=== PATIENT | female | born 1955 | race Caucasian/White ===

== ENCOUNTER → 2016-11-17 | Outpatient (CLI) | payer OTHER | LOC: BMCIMAGING 11:13 | PROVIDERS: ATTEND Anesthesiology Pain Medicine | DX: M50.322 Other cervical disc degeneration at C5-C6 level (principal); M50.323 Other cervical disc degeneration at C6-C7 level; M99.71 Connective tissue and disc stenosis of intervertebral foramina of cervical region ==

== ENCOUNTER → 2016-12-01 | Outpatient (CLI) | payer OTHER | LOC: BMCIMAGING 12:11 | PROVIDERS: ATTEND Internal Medicine | DX: Z12.31 Encounter for screening mammogram for malignant neoplasm of breast (principal); M25.572 Pain in left ankle and joints of left foot; M25.571 Pain in right ankle and joints of right foot | CPT/HCPCS: G0202 ==

== ENCOUNTER → 2016-12-10 | Outpatient (CLI) | payer OTHER | LOC: BMCIMAGING 10:41 | PROVIDERS: ATTEND Internal Medicine | DX: Z12.39 Encounter for other screening for malignant neoplasm of breast (principal); N63.21 Unspecified lump in the left breast, upper outer quadrant | CPT/HCPCS: 76641; G0206 ==

== ENCOUNTER → 2016-12-12 | Outpatient (CLI) | payer OTHER | LOC: FIMAGING 08:46 | PROVIDERS: ATTEND Podiatrist Foot & Ankle Surgery | DX: S93.432D Sprain of tibiofibular ligament of left ankle, subsequent encounter (principal); M76.71 Peroneal tendinitis, right leg; R93.6 Abnormal findings on diagnostic imaging of limbs; M76.72 Peroneal tendinitis, left leg; M76.822 Posterior tibial tendinitis, left leg; M25.572 Pain in left ankle and joints of left foot; M25.571 Pain in right ankle and joints of right foot ==

== ENCOUNTER → 2016-12-28 | Outpatient (CLI) | payer OTHER ==
[~2016-12-28] MED LIST: BUPIVACAINE 0.5% 10 ML SDV ONE; LIDOCAINE 1% 300 MG/30 ML SDV ONE; THROMBIN (BOVINE) 5,000 UNIT VIAL TP ONE
== END ==
LOC: FIMAGING 06:58
PROVIDERS: ATTEND Internal Medicine
PROC: 0HBU3ZX Excision of Left Breast, Percutaneous Approach, Diagnostic (ICD-10-PCS; principal; 2016-12-28)
DX: N64.1 Fat necrosis of breast (principal)
CPT/HCPCS: 19083; 88305; G0206

== ENCOUNTER 2017-03-25 17:27 | Inpatient (IN) | payer OTHER ==
--- NOTE | 2017-03-25 17:31 | EDPHY ---
H & P Time Seen by Provider: 03/25/17 17:31 HPI/ROS: CHIEF COMPLAINT: Chest pain HISTORY OF PRESENT ILLNESS: Patient arrives by EMS. About 345 patient felt nausea after eating and had 2 episodes of vomiting followed by severe anterior chest pain which feels like something is "being ripped "and radiates now to the back between her scapula. Symptoms severe and worse with deep breath or sometimes with movement. Not associated with cough or weakness or numbness in extremities. She did have diarrhea with her vomiting. She received aspirin by the paramedics. REVIEW OF SYSTEMS: Eye: no change in vision ENT: no sore throat Cardiac: No palpitations or syncope Pulmonary: no cough or SOB Abdomen: No abdominal pain now Musculoskeletal: HPI no leg swelling Skin: no rash Neuro: no headache Constitutional: no fever : no urinary symptoms A comprehensive 10 point review of systems is otherwise negative aside from elements mentioned in the history of present illness. PAST MEDICAL HISTORY: Dr. Wheeler history and physical in June of 2008 personally reviewed includes diabetes, bipolar disorder, hypertension, hyperlipidemia, chronic pain. Appendectomy. Social history: Nonsmoker. Family history: Brother had quadruple bypass surgery General Appearance: Alert and conversant, cooperative. Eyes: No scleral icterus. ENT, Mouth: Normal mucous membranes. Respiratory: Normal respiratory effort, breath sounds equal, lungs are clear to auscultation. Breath sounds present on both sides. Cardiovascular: Regular rate and rhythm. Gastrointestinal: Abdomen is soft and non tender. Negative for Barnes sign or epigastric tenderness. Neurological: Alert, face symmetric, normal motor and sensory in extremities. Skin: Warm and dry, no rashes. Musculoskeletal: No peripheral edema. No calf tenderness. Psychiatric: Not agitated. Emergency Department course/MDM: Patient declined pain medication on arrival as she is under the care of Dr. Rosy Wallace for chronic pain. Plan for labs including LFT and D-dimer. Troponin and CT angiography to evaluate for dissection, will do CT angiography of the pulmonary arteries if D- dimer is positive. 1839: troponin 0.43, repeat EKG, NTG sl given, cardiology consult. Results discussed with the patient at 7:15 p.m.. She would like to take her usual pain medication and is given Percocet 2 p.o. Admission to hospitalist service for further evaluation. Constitutional: Initial Vital Signs Temperature (C) 37.0 C 03/25/17 17:38 Heart Rate 90 03/25/17 17:38 Respiratory Rate 18 03/25/17 17:38 Blood Pressure 154/80 H 03/25/17 17:38 O2 Sat (%) 97 03/25/17 17:38 O2 Delivery Mode Room Air Allergies/Adverse Reactions: nabumetone [Nabumetone] Allergy (Severe, Unverified 03/25/17 19:33) metaxalone [From Skelaxin] Allergy (Unknown, Unverified 03/25/17 19:33) Sulfa (Sulfonamide Antibiotics) Allergy (Unknown, Unverified 03/25/17 19:33) Home Medications: Medication Instructions Recorded ARIPiprazole [Abilify 5 mg (*)] 2.5 mg PO DAILY 01/19/10 Albuterol [Proventil Inhaler HFA 2 puffs IH Q4 PRN 01/19/10 (*)] Diazepam [Valium 10 MG (*)] 10 mg PO DAILY PRN 01/19/10 Omeprazole [Prilosec 20 mg] 20 mg PO BIDAC 01/19/10 Triamterene/Hydrochlorothiazid 1 each PO DAILY 01/19/10 [Triamterene-Hctz 37.5-25 mg Tb] traZODone [traZODone 150MG (*)] 150 mg PO HS 01/19/10 Albuterol [Proventil Inhaler HFA 1 puffs IH BID 03/25/17 (*)] Aspirin EC [Aspirin EC 81 mg (*)] 81 mg PO DAILY 03/25/17 Baclofen [Baclofen 10 mg (*)] 10 mg PO TID 03/25/17 Cholecalciferol Vit D3 [Vitamin D3 2,500 units PO DAILY18 03/25/17 (*)] Cyanocobalamin [Vitamin B12 (*)] 1,000 mcg PO DAILY18 03/25/17 Cyclobenzaprine [Flexeril 10 MG 10 mg PO DAILY PRN 03/25/17 (*)] Docusate Calcium [Stool Softener] 240 mg PO DAILY18 03/25/17 Ferrous Sulfate [Ferrous Sulf 325 325 mg PO DAILY18 03/25/17 MG (*)] Fluticasone Nasal [Flonase Nasal 2 sprays EACHNARE DAILY 03/25/17 [place] (RX)] Fluticasone Nasal [Flonase Nasal 2 sprays EACHNARE HS PRN 03/25/17 [place] (RX)] Gabapentin [Neurontin 300 MG (*)] 1,200 mg PO HS 03/25/17 [place]/Supplements -Info Only 1 ea PO DAILY 03/25/17 Ibuprofen/Diphenhydramine Cit 2 each PO DAILY@22 03/25/17 [Advil Pm Caplet] Linaclotide [Linzess] 290 mcg PO DAILY 03/25/17 Metoprolol Tartrate [Lopressor 50 50 mg PO BID 03/25/17 mg (*)] Mometasone/Formoterol [Dulera 200 1 inh IH BID 03/25/17 Mcg/5 Mcg Inhaler] Ondansetron Odt [Zofran Odt 4 mg 4 mg PO DAILY PRN 03/25/17 (*)] Simvastatin 40 mg PO DAILY AT 6PM 03/25/17 metFORMIN SR [Glucophage XR 500 mg 1,000 mg PO DAILY AT 6PM 03/25/17 (*)] Medical Decision Making - Diagnostics EKG Interpretation: 12-lead EKG interpreted by me; official reading is in trace master. My interpretation is sinus rhythm rate 89 with late anterior RS transition. 2nd EKG at 6:43 p.m.: 12-lead EKG interpreted by me; official reading is in trace master. My interpretation is sinus rhythm, late anterior RS transition, otherwise negative. No ST elevation. Imaging Results: Imaging Impressions Chest/Thorax CTA 03/25/17 18:19 Impression: 1. No pulmonary embolism to the segmental level. 2. Scan timing appears optimized to evaluate the pulmonary arterial system, however, the thoracic aorta does appear grossly normal. 3. Scattered 3 mm groundglass nodules, most apparent in the lingula. Per Fleischner Society 2017 guidelines, recommend follow-up CT in 3-[address] Gordon discussed these findings by telephone with CRISTIANO BAKER on 03/25/2017 at 19:30 hours. [place]ain[place] 1931, CT angio chest shows no dissection, no PE. No reason for chest pain; no [place]. Differential Diagnosis: Differential diagnosis considered for chest pain including but not limited to myocardial ischemia, aortic dissection, pericarditis, pulmonary embolus, chest wall pain, pleural inflammation and pulmonary infectious causes. Consult/Admit Bed Type: Discussed with [facility]lin cardiology 1842, Jonathan 1914 - Data Points Laboratory Results: Laboratory Results 03/25/17 17:36 03/25/17 17:36 03/25/17 03/25/17 03/25/17 17:37 17:36 17:36 WBC RBC Hgb POC Hgb 14.6 gm/dL gm/dL (12.6-16.3) Hct POC Hct 43 % % (38-47) MCV MCH MCHC RDW Plt Count MPV Neut % (Auto) Lymph % (Auto) [place] % (Auto) Eos % (Auto) Baso % (Auto) Nucleat RBC Rel Count Absolute Neuts (auto) Absolute Lymphs (auto) Absolute Monos (auto) Absolute Eos (auto) Absolute Basos (auto) Absolute Nucleated RBC Immature Gran % Immature Gran # D-Dimer 0.49 ug/mLFEU ug/mLFEU (0.00-0.50) POC Sodium 139 mEq/L mEq/L (135-145) Sodium 139 mEq/L mEq/L (135-145) POC Potassium 3.7 mEq/L mEq/L (3.3-5.0) Potassium 4.1 mEq/L mEq/L (3.5-5.2) POC Chloride 100 mEq/L mEq/L (97-110) Chloride 102 mEq/L mEq/L (97-110) Carbon Dioxide 23 mEq/l mEq/l (22-31) Anion Gap 14 mEq/L mEq/L (8-16) POC BUN 26 mg/dL H mg/dL (7-23) BUN 25 mg/dL H mg/dL (7-23) Creatinine 0.8 mg/dL mg/dL (0.6-1.0) POC Creatinine 0.8 mg/dL mg/dL (0.6-1.0) Estimated GFR > 60 Glucose 131 mg/dL H mg/dL (70-100) POC Glucose 154 mg/dL H mg/dL (70-100) Calcium 9.9 mg/dL mg/dL (8.5-10.4) Total Bilirubin 0.3 mg/dL mg/dL (0.1-1.4) Conjugated Bilirubin 0.3 mg/dL mg/dL (0.0-0.5) Unconjugated Bilirubin 0.0 mg/dL mg/dL (0.0-1.1) AST 23 IU/L IU/L (14-46) ALT 30 IU/L IU/L (9-52) Alkaline Phosphatase 119 IU/L IU/L (38-126) Troponin I 0.434 ng/mL H ng/mL (0.000-0.034) Total Protein 6.8 g/dL g/dL (6.3-8.2) Albumin 4.2 g/dL g/dL (3.5-5.0) Lipase 156 IU/L IU/L (23-300) 03/25/17 17:36 WBC 11.20 10^3/uL H 10^3/uL (3.80-9.50) RBC 5.39 10^6/uL H 10^6/uL (4.18-5.33) Hgb 14.1 g/dL g/dL (12.6-16.3) POC Hgb Hct 43.0 % % (38.0-47.0) POC Hct MCV 79.8 fL L fL (81.5-99.8) MCH 26.2 pg L pg (27.9-34.1) MCHC 32.8 g/dL g/dL (32.4-36.7) RDW 17.0 % H % (11.5-15.2) Plt Count 321 10^3/uL 10^3/uL (150-400) MPV 9.7 fL fL (8.7-11.7) Neut % (Auto) 78.7 % H % (39.3-74.2) Lymph % (Auto) 12.6 % L % (15.0-45.0) [place] % (Auto) 6.2 % % (4.5-13.0) Eos % (Auto) 1.2 % % (0.6-7.6) Baso % (Auto) 0.6 % % (0.3-1.7) Nucleat RBC Rel Count 0.0 % % (0.0-0.2) Absolute Neuts (auto) 8.82 10^3/uL H 10^3/uL (1.70-6.50) Absolute Lymphs (auto) 1.41 10^3/uL 10^3/uL (1.00-3.00) Absolute Monos (auto) 0.69 10^3/uL 10^3/uL (0.30-0.80) Absolute Eos (auto) 0.13 10^3/uL 10^3/uL (0.03-0.40) Absolute Basos (auto) 0.07 10^3/uL 10^3/uL (0.02-0.10) Absolute Nucleated RBC 0.00 10^3/uL 10^3/uL (0-0.01) Immature Gran % 0.7 % % (0.0-1.1) Immature Gran # 0.08 10^3/uL 10^3/uL (0.00-0.10) D-Dimer POC Sodium Sodium POC Potassium Potassium POC Chloride Chloride Carbon Dioxide Anion Gap POC BUN BUN Creatinine POC Creatinine Estimated GFR Glucose POC Glucose Calcium Total Bilirubin Conjugated Bilirubin Unconjugated Bilirubin AST ALT Alkaline Phosphatase Troponin I Total Protein Albumin Lipase Medications Given: Aspirin (Aspirin) 81 mg PO DAILY ABDON Stop: 09/21/17 19:49 Last Admin: 03/25/17 19:59 Dose: Not Given Diazepam (Valium) 10 mg PO DAILY PRN PRN Reason: neck/shoulder pain Stop: 09/21/17 21:19 Last Admin: 03/25/17 21:34 Dose: 10 mg Discontinued Medications Oxycodone/Acetaminophen (Percocet 5/325) 2 tab PO EDNOW ONE Stop: 03/25/17 19:28 Last Admin: 03/25/17 19:33 Dose: 2 tab Point of Care Test Results: 03/25/17 17:37 POC Sodium 139 POC Potassium 3.7 POC Chloride 100 POC BUN 26 H POC Creatinine 0.8 POC Glucose 154 H Departure - Departure Disposition: [facility] Inpatient Acute Clinical Impression: Troponin level elevated Chest pain Qualifiers: Chest pain type: unspecified Qualified Code(s): R07.9 - Chest pain, unspecified Condition: Fair
--- NOTE | 2017-03-25 17:38 | CPEKG ---
Heart Rate: 89 RR Interval: 674 P-R Interval: 148 QRSD Interval: 68 QT Interval: 360 QTC Interval: 439 P Baker: 54 QRS Baker: 35 T Wave Baker: 27 EKG Severity - ABNORMAL ECG - EKG Impression: SINUS RHYTHM EKG Impression: CONSIDER ANTEROSEPTAL INFARCT Electronically Signed By: Yovany Meyers 25-Mar-2017 17:45:55
[2017-03-25 18:01] LABS: PLATELET COUNT 321 10^3/uL (150-400)
[2017-03-25] MEDS ORDERED: IOPAMIDOL (ISOVUE 370) 100 ML BTL IV ONE (18:27)
[2017-03-25] MEDS ORDERED: NITROGLYCERIN 0.4 MG BTL SL PRN (18:40)
--- NOTE | 2017-03-25 18:44 | CPEKG ---
Heart Rate: 91 RR Interval: 659 P-R Interval: 180 QRSD Interval: 70 QT Interval: 372 QTC Interval: 458 P Abercrombie: 78 QRS Abercrombie: 34 T Wave Abercrombie: 38 EKG Severity - ABNORMAL ECG - EKG Impression: SINUS RHYTHM EKG Impression: CONSIDER ANTEROSEPTAL INFARCT Electronically Signed By: Yovany Meyers 25-Mar-2017 18:46:31
[2017-03-25] MEDS ORDERED: OXYCODONE/APAP 5/325 TAB PO ONE (19:27)
[2017-03-25] MEDS ORDERED: ONDANSETRON 4 MG/2 ML VIAL IVP PRN (19:43)
[2017-03-25] MEDS ORDERED: ONDANSETRON DISINTEGRATING 4 MG TAB PO PRN ×2 (19:43→21:20)
[2017-03-25] MEDS ORDERED: ACETAMINOPHEN 325 MG TAB PO PRN (19:43)
[2017-03-25] MEDS ORDERED: ASPIRIN 81 MG CHEWABLE TAB PO SCH (19:50)
--- NOTE | 2017-03-25 20:46 | GHP ---
[f rep st] HISTORY AND PHYSICAL DATE OF ADMISSION: 03/25/2017 HISTORY OF PRESENT ILLNESS: The patient is a pleasant, 62-year-old female with history of high blood pressure, chronic pain, irritable bowel syndrome, hyperlipidemia, and diabetes who presents with alexis den-onset chest pain. This morning she woke up, she did not feel quite right. She says everyone has been sick recently and granddaughter just had chicken pox. The patient has been vaccinated. Has had the zoster vaccine. Has had chickenpox in the past. Today, she was straining at stool. She felt some chest pain and abd ominal pain that was pleuritic. She got a bit diaphoretic. She had a large bowel movement followed by some diarrhea and she has also had some vomiting. Since then, she has had some chest pain. She h as had a little bit of perspiration. It does not go anywhere like her arm or jaw. She does not have history of exertional chest pain. She has no recent long car trips or plane trips. No family or personal history of VTE. She also describes her anterior chest pain is like something is being ripped. Radiates to her scapul a. It is worse with movement. It actually was improved by sitting up and leaning on her left side. REVIEW OF SYSTEMS: Complete 10-point review of systems conducted and negative except as noted in the HPI. PAST MEDICAL HISTORY: Diabetes, bipolar, hypertension, hyperlipidemia, chronic pain. Appendectomy. SOCIAL HISTORY: She is a nonsmoker. Lives in [place]. Originally from [place], [place]. FAMILY HISTORY: Notable for her brother and quadruple bypass. ALLERGIES: Nabumetone, metaxalone, sulfa. MEDICATIONS: Pending at this time. PHYSICAL EXAMINATION: VITAL SIGNS: Temperature 37, blood pressure 154/80, pulse 90, breathing 18 ti mes a minute, 97% on room air. GENERAL: No acute distress. Not breathless. Sclerae are anicteric. Oropharynx is clear. Mucous membranes are moist. NECK: Supple without lymphadenopathy or JVD. MELANIE NGS: Clear to auscultation bilaterally. HEART: S1, S2. Borderline tachycardic. There is no murmu r. There is no rub. ABDOMEN: Soft, nontender, nondistended. EXTREMITIES: Lower extremities witho ut edema. Calves are nontender. SKIN: Without rash. NEUROLOGIC: Nonfocal. LABS: White count is 11.2, left shift. Hematocrit 43, MCV is low at 79.8. D-dimer 0.49, sodium is 139, potassium 4.1, chloride 102, bicarb 22, BUN 25, creatinine 0.8, glucose 131, troponin is 0.434. LFTs are normal. EKG: Interpreted by me. Initial EKG has somewhat of a wavy baseline. The second shows sinus at 91 with normal axis and intervals. There is what appears to be a pseudo 0.[address] elevation in lead I. Not seen in L. Not seen in the lateral leads. She does appear to have RI depression of 1 mm in caesar d II as well as some RI elevation in lead AVR. CTA of the chest: Interpreted by me. The CTA of the chest shows no pulmonary embolism. No pneumoni a. There is some motion artifact, but there is no large pulmonary embolism. There are 3 mm ground-g lass nodules, most apparent in the lingula. This recommends followup in 3-6 months. There is no aor tic aneurysm or intimal flap to suggest dissection. I discussed the case Dr. Yovany Meyers. ASSESSMENT/PLAN: A 62-year-old female who presents with chest pain and positive troponin. 1. Chest pain with positive troponin but without ST-elevation and really without any ischemic electr ocardiogram changes. Her electrocardiogram does, perhaps, suggest pericarditis and certainly a mild pericarditis would be a reasonable diagnostic consideration. She has been probably ruled out for pul monary embolism between the negative D-dimer and a test that is suboptimal but negative for pulmonary embolism. Certainly a pulmonary embolism causing the symptomatology and positive troponin would exp ect it to be large. a. I will cycle her troponins. I will check an echocardiogram. If this is a pericarditis, I would expect her troponin to be somewhat flat. Cardiology could be consulted if this does not fall in the trajectory as expected. b. Notably, the patient had a carotid ultrasound in 2016 that showed really no vascular disease at a ll, making significant coronary disease less likely but not impossible. 2. Chronic pain. Will continue her medications. 3. Microcytosis. She takes iron. 4. Nausea, vomiting, and diarrhea. This sounds like either the resolution of symptomatic constipati on and/or a viral gastroenteritis. We will follow. 5. Diabetes. Will hold her metformin. She has historically good control. Her last hemoglobin A1c was below 7. 6. Prophylaxis. Pharmacologic prophylaxis indicated. 7. Disposition. Inpatient status. /[id number]/MODL
[2017-03-25] MEDS ORDERED: DIAZEPAM 10 MG TAB PO PRN (21:20)
[2017-03-25] MEDS ORDERED: CYCLOBENZAPRINE 10 MG TAB PO PRN (21:20)
[2017-03-25] MEDS ORDERED: ALBUTEROL 60 PUFFS/8 GM MDI IH PRN (21:20)
[2017-03-25] MEDS ORDERED: DIAZEPAM 5 MG TAB ONE (21:33)
[2017-03-25] MEDS ORDERED: DIPHENHYDRAMINE CIT PO SCH (22:00)
[2017-03-25] MEDS ORDERED: IBUPROFEN PO SCH (22:00)
[2017-03-25] MEDS ORDERED: ASPIRIN 325 MG TAB PO ONE (22:55)
--- NOTE | 2017-03-25 23:07 | CPEKG ---
Heart Rate: 95 RR Interval: 632 P-R Interval: 172 QRSD Interval: 62 QT Interval: 360 QTC Interval: 453 P Gilmore: 78 QRS Gilmore: 54 T Wave Gilmore: 55 EKG Severity - ABNORMAL ECG - EKG Impression: SINUS RHYTHM EKG Impression: CONSIDER ANTEROSEPTAL INFARCT Electronically Signed By: Yovany Meyers 25-Mar-2017 23:45:12
[2017-03-25] MEDS ORDERED: FLUTICASONE NASAL 120 SPRAYS/16 GM MDI EACHNARE PRN (23:30)
[2017-03-25] MEDS ORDERED: DIAZEPAM 5 MG TAB PO PRN (23:30)
[2017-03-25] MEDS: GABAPENTIN 300 MG CAP PO SCH (23:33)
[2017-03-25] MEDS: METOPROLOL TARTRATE 50 MG TAB PO SCH (23:33)
[2017-03-25] MEDS: BACLOFEN 10 MG TAB PO SCH (23:33)
[2017-03-25] MEDS: ENOXAPARIN 80 MG/0.8 ML SYR SC SCH (23:48)
[2017-03-26] MEDS: ENOXAPARIN 80 MG/0.8 ML SYR SC SCH ×2 (00:14→08:53)
[2017-03-26 04:26] LABS: PLATELET COUNT 310 10^3/uL (150-400)
[2017-03-26] MEDS: TRIAMTERENE/HCTZ 37.5/25 1 EACH TAB PO SCH (08:54)
[2017-03-26] MEDS: METOPROLOL TARTRATE 50 MG TAB PO SCH ×2 (08:54→20:50)
[2017-03-26] MEDS: ASPIRIN EC 81 MG TAB PO SCH (08:54)
[2017-03-26] MEDS: PANTOPRAZOLE SODIUM 40 MG TAB PO SCH (08:54)
[2017-03-26] MEDS: ARIPiprazole 5 MG TAB PO SCH (08:54)
[2017-03-26] MEDS: BACLOFEN 10 MG TAB PO SCH ×3 (08:54→20:50)
[2017-03-26] MEDS: NON-FORMULARY NEW DRUG (Linaclotide [Linzess] 290 MCG) PO SCH (08:56)
[2017-03-26] MEDS ORDERED: Herbals/Supplements -Info Only PO SCH (09:00)
[2017-03-26] MEDS ORDERED: ENOXAPARIN 40 MG/0.4 ML SYR SC SCH (09:00)
[2017-03-26] MEDS ORDERED: FLUTICASONE NASAL 120 SPRAYS/16 GM MDI EACHNARE SCH (09:00)
[2017-03-26] MEDS: ALBUTEROL 60 PUFFS/8 GM MDI IH SCH ×2 (09:34→21:06)
[2017-03-26] MEDS: FORMOTEROL IH SCH ×2 (09:35→21:06)
[2017-03-26] MEDS: MOMETASONE IH SCH ×2 (09:35→21:06)
--- NOTE | 2017-03-26 11:04 | ECHO ---
[email or web address] [address] [address] Main: [phone] Fax: Transthoracic Echocardiogram Name: ROCHELLE SIMONS MR#: [id number] Study Date: 03/26/2017 Study Time: 08:27 AM Date of : 1955 Age: 62 year(s) Height: 160 cm (63 in.) Weight: 71.67 kg (158 lb.) BSA: 1.75 m2 Gender: Female Examination: Echo Indication: chest pain and elevated troponin Image Quality: Technically Difficult Contrast: Requested by: Deonte Castillo BP: 108 mmHg/61 mmHg Heart Rate: 82 bpm Rhythm: Normal sinus rhythm Indication: chest pain and elevated troponin Procedure Staff Auto Body Estimator: Lenora Rubio [facility] Reading Physician: Cosme Adams Requesting Provider: Conclusions: Normal size left ventricle. Borderline concentric LV hypertrophy. Mildly reduced systolic LV function. EF is 46 %. Mid to distal inferoseptal hypokinesis. Grade 1 diastolic dysfunction (abnormal relaxation). There is mild thickening of the mitral valve leaflets. Trivial to mild mitral regurgitation. Aortic sclerosis is present. There is no significant tricuspid valve regurgitation. Measurements: Chambers Valvular Assessment AV/MV Valvular Assessment TV/PV Normal Normal Normal Name Value Range Name Value Range Name Value Range IVSd (2D): 1.0 cm (0.6 cm-1.1 AV Vmax: 0.95 m/s (1 m/s-1.7 PV Vmax: 1.17 m/s (0.6 m/s-0.9 cm) m/s) m/s) LVDd (2D): 3.8 cm (3.9 cm-5.3 AV maxP mmHg ( - ) PV PGmax: 5 mmHg ( - ) cm) LVOT Vmax: 0.71 m/s (0.7 m/s-1.1 LVDs (2D): 2.9 cm (2.1 cm-4 m/s) cm) MV E Vmax: 0.83 m/s ( - ) LVPWd (2D): 0.9 cm ( - ) MV A Vmax: 1.25 m/s ( - ) LVEF (BP): 46 % (>=55 %) MV E/A: 0.66 ( - ) RVDd(2D): 2.0 cm (1.9 cm-3.8 cmmm) Continued Measurements: Chambers Valvular Assessment AV/MV Patient: ROCHELLE SIMONS Study Date: 03/26/2017 Page 1 of 2 08:27 AM Name Value Name Value LADs Lon.5 cm MV DecTime: 214 m/s LA Area: 11.7 cm2 MV E' Septal: 0.06 m/s LA Volume: 30 ml MV E/E' Septal: 13.60 LA Volume Index: 17.1 ml/m2 MV E/E' Lateral: 11.90 RA Area: 10.2 cm2 Findings: Left Ventricle: Normal size left ventricle. Borderline concentric LV hypertrophy. Mildly reduced systolic LV function. EF is 46 %. Mid to distal inferoseptal hypokinesis. Grade 1 diastolic dysfunction (abnormal relaxation). Right Ventricle: Normal size right ventricle. Normal RV function. Left Atrium: The left atrium is normal in size. Right Atrium: The right atrium is normal in size. Mitral Valve: There is mild thickening of the mitral valve leaflets. Trivial to mild mitral regurgitation. No mitral stenosis is present. Aortic Valve: The aortic valve is normal in appearance and function. Aortic sclerosis is present. There is no significant aortic valve regurgitation. No aortic valve stenosis is present. Tricuspid Valve: The tricuspid valve is normal in appearance and function. There is no significant tricuspid valve regurgitation. Pulmonic Valve: The pulmonic valve is normal in appearance and function. There is no pulmonic regurgitation seen. Aorta: Ascending aorta root not well seen.. IVC: The IVC is normal sized. Pericardium: Trivial anterior pericardial effusion. There is pericardial fat. (No Signature Object) Patient: ROCHELLE SIMONS Study Date: 03/26/2017 Page 2 of 2 08:27 AM [id number]
[2017-03-26] MEDS ORDERED: NITROGLYCERIN 0.4 MG BTL SL PRN (11:12)
[2017-03-26] MEDS ORDERED: OXYCODONE/APAP 5/325 TAB PO PRN (11:13)
--- NOTE | 2017-03-26 11:54 | PDMN ---
Medical Necessity Medical necessity: est los>2mn for chest pain with positive troponin, N/V/D,r/o pericarditis, ; admit for serial troponins, potential cardiac consult; comorbid DM, HTN, HLD, bipolar, and chronic pain; per order and H&P 03/25/17
[2017-03-26] MEDS ORDERED: ASPIRIN EC 325 MG TAB PO ONE (12:22)
[2017-03-26] MEDS ORDERED: FAMOTIDINE 20 MG TAB PO ONE (12:22)
[2017-03-26] MEDS ORDERED: diphenhydrAMINE 25 MG CAP PO ONE (12:22)
--- NOTE | 2017-03-26 12:48 | PDHPUP ---
History & Physical Update H&P update statement: This history and physical update is based on an assessment of the patient which was completed after admission or registration (within 24 hours), but prior to the surgery/procedure. H&P update: H&P reviewed & patient examined, no change in patient's condition since H&P completed
--- NOTE | 2017-03-26 12:49 | PDPROPOC ---
Sedation Plan of Care Sedation Plan of Care: vital signs stable, mental status noted, patient educated of risks, benefits, alternatives, patient can tolerate sedation ASA Classification: ASA 2 Planned drugs: fentanyl, midazolam Mallampati Score: Class 2 Mallampati Reference Image: Patient passed 3-3-2 rule?: Yes
[2017-03-26] MEDS ORDERED: fentaNYL 100 MCG/2 ML INJ ONE (13:00)
[2017-03-26] MEDS ORDERED: MIDAZOLAM 2 MG/2 ML VIAL ONE (13:00)
[2017-03-26] MEDS ORDERED: LIDOCAINE 1% 300 MG/30 ML SDV ONE (13:00)
[2017-03-26] MEDS ORDERED: IOPAMIDOL (ISOVUE-370) 150 ML BTL IV ONE (13:01)
[2017-03-26] MEDS ORDERED: ATROPINE SULFATE 1 MG/10 ML SYR IVP PRN (14:21)
--- NOTE | 2017-03-26 14:29 | PDDXCAT ---
Diagnostic Cath Note - . Date: 03/26/17 Press Reader: Bryan Indication: other (Chest pain, elevated troponin, and multiple CAD risk factors. ) - Procedure Access: right groin Procedure: left heart catheterization, coronary angiography, left ventriculogram - Materials Left Heart Cath size: 6F Left Heart Cath materials: standard multipack (JL4, JR4, pigtail) - Findings-Left Heart Catheterization LM: Normal. LAD: There is a segment of disease in the mid-LAD spanning approximately 25 cm in length containing 3 to 4 areas of stenosis up to 50-60%. The remainder of the LAD and its diagonal branches are normal in appearance. LCX: Minimal irregularities. RCA: Normal. EDP: 23 mmHg LVEF: 40% Wall motion: There is a circumferential zone of akinesis comprising approximately the middle third of the left ventricle and crossing all 3 coronary artery distributions. Complications: None Estimated blood loss: <50ml Closure method: Angioseal Assessment: 1) Nonischemic cardiomyopathy with mildly to moderately reduced left ventricular systolic function secondary to the mid-ventricular variant of Takotsubo syndrome. 2) Coronary artery disease as described above. Plan: For her documented coronary atherosclerosis, she will need aggressive secondary prevention. She should continue aspirin and a statin. A lipid panel performed last year demonstrated a total cholesterol of 190 with HDL 36, LDL 86, and triglycerides 344. A repeat lipid panel, along with a directly measured LDL, has been requested to be added to her blood sample from this morning's draw. Her goal LDL should be less than 70. Would consider switching her to atorvastatin. For her Takotsubo syndrome, beta brittany therapy should be added to her outpatient regimen. She should be seen in follow up for repeat echocardiography in several weeks to assess for probable resolution of her wall motion abnormalities. She is stable for discharge. Patient Problems: Problems Problem Status Onset Chest pain Acute Troponin level elevated Acute
--- NOTE | 2017-03-26 15:20 | ASMTCASEMG ---
Living Arrangements What is your living Answers: With Spouse arrangement? Who do you live with? Type Of Residence What kind of residence do Answers: House you live in? Discharge Plan Comments Coordination Status Comments Notes: Pt is a 62 y/o female admitted for chest pain and elevated trop. Pt had a heart cath at 1PM this afternoon. Pt should not have any needs at time of d/c. Therapies have not been ordered. CM available for changes. Plan: Independent Date Signed: 03/26/2017 03:20 PM Electronically Signed By:ABBE Noel
--- NOTE | 2017-03-26 16:34 | HOSPPROG ---
Hospitalist Progress Note Assessment/Plan: This is a 62-year-old female presented with chest pain and elevated troponins status post cardiac catheterization showing #Nonischemic cardiomyopathy with mild to moderate reduced left ventricular systolic function thought to be due to takotsubo syndrome with minimal coronary artery disease # chronic pain (controlled) -continue with Percocet as needed # diabetes mellitus (controlled) Disposition: Patient will be monitored for 1 more day to ensure her cardiac function is stabilizing. Subjective: Patient was seen this morning where she continued to have dull chest pain. She denies any shortness of breath. Denies any fevers or chills. Objective: Vital Signs Temp Pulse Resp BP Pulse Ox 37.2 C 90 15 108/65 94 03/26/17 15:50 03/26/17 15:50 03/26/17 15:50 03/26/17 15:50 03/26/17 15:50 Laboratory Results 03/26/17 03:40 03/26/17 03:40 03/25/17 03/26/17 03/27/17 05:59 05:59 05:59 Intake Total 600 250 Output Total 250 700 Balance 350 -450 Laboratory Tests 03/25/17 03/25/17 03/26/17 17:36 22:04 03:40 Troponin I 0.434 H 1.930 H 1.370 H - Physical Exam Constitutional: no apparent distress, appears nourished, not in pain Cardiovascular: regular rate and rhythym, no murmur, rub, or gallop Respiratory: no respiratory distress, no rales or rhonchi, clear to auscultation Gastrointestinal: normoactive bowel sounds, soft, non-tender abdomen, no palpable masses, No guarding, No rebound Neurologic: AAOx3, sensation intact bilaterally, CN II-XII Intact, No facial droop ICD10 Worksheet Patient Problems: Problems Problem Status Onset Chest pain Acute Troponin level elevated Acute
--- NOTE | 2017-03-26 17:37 | GCON ---
[f rep st] CONSULTATION CARDIOLOGY CONSULTATION. DATE OF CONSULTATION: 03/26/2017 REFERRING PHYSICIAN: Deonte Castillo MD REASON FOR CONSULTATION: 1. Chest pain. 2. Elevated troponin. HISTORY OF PRESENT ILLNESS: The patient is a 62-year-old woman with no prior cardiac history but a s ignificant cardiovascular risk profile. She was admitted to the hospital for observation yesterday a fternoon for an episode of chest discomfort that came on while she was straining to have a bowel move ment. She described it as an extremely heavy chest pressure with some diaphoresis along with nausea and vomiting. She did not have significant dyspnea. She spoke with her by phone and he call ed 911. In the emergency room, her ECG was notable for anteroseptal Q-waves, but no acute ST-T wave abnormalities. Two sublingual doses of nitroglycerin had no impact on her discomfort. It finally cruz bsided at approximately midnight. Overnight, her troponin levels peaked at 1.93. This morning, she is pain-free and her troponin is down to 1.37. Her cardiac risk profile is significant including type 2 diabetes, hypertension, hyperlipidemia, and a family history notable for premature CAD. Her father at age 51 from myocardial infarct ion. She has a brother who is 2 years older who is currently recuperating from coronary bypass surge ry. She smoked for approximately 2 years when she was in her 20s. PAST MEDICAL HISTORY: In addition to the items already mentioned, her H and P also lists bipolar dis order and chronic pain syndrome. Surgical history consists of a prior appendectomy. Chronic anemia. FAMILY HISTORY: As outlined above. MEDICATIONS: Please refer to the electronic record for her lengthy list of home medications. Releva nt cardiac medications consist of aspirin and simvastatin. ALLERGIES: Nabumetone, metaxalone, sulfa. SOCIAL HISTORY: She is . She lives in [place]. She does not smoke or consume significant amounts of alcohol. REVIEW OF SYSTEMS: Apart from the constipation, chest pain, nausea, and vomiting mentioned in the hi story of present illness. A 10-point review was negative. PHYSICAL EXAMINATION: VITAL SIGNS: Heart rate in the 80s with sinus rhythm on the monitor. Blood p ressure 109/61, O2 saturation 92% on room air. GENERAL: This is a well-developed, well-nourished wo man in no acute distress. She is alert and oriented x3. HEAD AND NECK: No scleral icterus. Mucous membranes moist. Carotid pulses 2+ without bruits. CHEST: Lung levy clear to auscultation. CAR DIAC: Regular rate and rhythm with a normal S1 and S2. There is no murmur or gallop. ABDOMEN: Sof t, nontender, nondistended, with normal bowel sounds. EXTREMITIES: 2+ pulses and no peripheral link a. STUDIES: ECG: As mentioned, her ECG demonstrated anteroseptal Q-waves. There are no conduction sys tem disturbances and no ischemic ST-T wave abnormalities. An echocardiogram this morning demonstrated ejection fraction of 45% with inferoseptal hypokinesis. She has age-related valvular changes without hemodynamically significant valvular dysfunction. LABORATORY STUDIES: Sodium 139, potassium 3.9, BUN 22 and creatinine 0.9. CBC shows a white blood c ell count of 10.22 with hemoglobin 12.3, and hematocrit of 38.8. Platelet count is 310. IMPRESSION: This is a 62-year-old woman who has a significant cardiac risk profile. She is currentl y admitted with an acute coronary syndrome. She does not manifest any signs of congestive heart fail ure. chronic anemia and also right before social history put in this. PLAN: The high likelihood of significant coronary disease was discussed with the patient. At [facility], the plan is for cardiac catheterization with possible PCI later today. /[id number]/MODL
[2017-03-26] MEDS ORDERED: DOCUSATE SODIUM 100 MG CAP PO SCH (18:00)
[2017-03-26] MEDS ORDERED: CYANO/VITAMIN B12 1000 MCG TAB PO SCH (18:00)
[2017-03-26] MEDS ORDERED: ATORVASTATIN CALCIUM 20 MG TAB PO SCH ×2 (18:00→19:44)
[2017-03-26] MEDS ORDERED: CHOLECALCIFEROL VIT D3 1,000 UNITS TAB PO SCH (18:00)
[2017-03-26] MEDS ORDERED: FERROUS SULFATE 325 MG TAB PO SCH (18:00)
[2017-03-26] MEDS ORDERED: ATORVASTATIN CALCIUM 20 MG TAB PO ONE (20:00)
[2017-03-26] MEDS: GABAPENTIN 300 MG CAP PO SCH (20:50)
[2017-03-26] MEDS ORDERED: IBUPROFEN 200 MG TAB PO SCH ×2 (21:00→22:00)
[2017-03-26] MEDS ORDERED: diphenhydrAMINE 25 MG CAP PO SCH (22:00)
[2017-03-27] MEDS: NON-FORMULARY NEW DRUG (Linaclotide [Linzess] 290 MCG) PO SCH (07:20)
[2017-03-27] MEDS: METOPROLOL TARTRATE 50 MG TAB PO SCH (08:32)
[2017-03-27] MEDS: TRIAMTERENE/HCTZ 37.5/25 1 EACH TAB PO SCH (08:33)
[2017-03-27] MEDS: ASPIRIN EC 81 MG TAB PO SCH (08:34)
[2017-03-27] MEDS: BACLOFEN 10 MG TAB PO SCH (08:34)
[2017-03-27] MEDS: ARIPiprazole 5 MG TAB PO SCH (08:35)
[2017-03-27] MEDS: PANTOPRAZOLE SODIUM 40 MG TAB PO SCH (08:35)
[2017-03-27] MEDS: ALBUTEROL 60 PUFFS/8 GM MDI IH SCH (09:07)
[2017-03-27] MEDS: MOMETASONE IH SCH (09:08)
[2017-03-27] MEDS: FORMOTEROL IH SCH (09:08)
[2017-03-27] MEDS ORDERED: LISINOPRIL 2.5 MG TAB PO SCH (10:00)
--- NOTE | 2017-03-27 10:14 | PDCARPN ---
Cardiology Progress Note Chief Complaint: Takotsubo CM Assessment/Plan: Assessment: 62F PMH htn, DM, hlp, and fhx of CAD, admitted with acute onset of chest pressure and N/V. Noted to have elevated trop and ongoing cp. LHC reveals mod LAD disease but not flow obstructive. LVgram shows mid-ventricular variant Takotsubo CM. #. Takotsubo CM: already on BB will add Lisinopril as EF noted to be 40% will plan for early clinic follow up (appt in discharge) #. CP: improved medical management with BB #. groin precautions: reviewed #. CAD: mod LAD disease we reviewed change from Simvastatin to Atorvastatin to improve LDL Plan: - OK to d/c home - consult with Dr. Quevedo - change Simvastatin to Atorvastatin/ will need labs in 4-6 weeks/ we will arrange for that in outpatient setting - start Lisinopril 03/27/17 10:06 Subjective: Notes some mild groin tenderness. No cp. Reviewed/Discussed With: hospitalist (Dr. Giordano) Objective: Vital Signs (8 Hrs) Temp Pulse Resp BP Pulse Ox 03/27/17 09:13 80 18 95 03/27/17 08:33 106/72 03/27/17 08:32 95 106/72 03/27/17 07:51 99.0 F 85 12 106/72 96 03/27/17 04:00 97.9 F 74 16 103/68 93 Intake/Output (24 Hrs) 03/26/17 03/27/17 03/28/17 05:59 05:59 05:59 Intake Total 600 750 Output Total 250 1050 Balance 350 -300 Intake: Oral (ml) 600 500 IV Intake (ml) 250 Output: Urine (ml) 250 1050 Bedpan 200 Toilet 250 850 Other: Weight 74.4 kg Intake Quantity npo Yes Sufficient Number of Voids 1 Toilet 1 1 Result Diagrams: 03/26/17 03:40 03/26/17 03:40 Cardiac Labs: Cardiac Lab Results (72 Hrs) 03/26/17 03/25/17 03:40 22:04 Troponin I 1.370 H 1.930 H Telemetry: reviewed- SR with artifact - Physical Exam Constitutional: WDWN, no apparent distress Eyes: PERRL, anicteric sclera Cardiovascular: regular rate and rhythm, no murmurs Peripheral Pulses: 1+: dorsalis-pedis (R), dorsalis-pedis (L) Respiratory: clear to auscultate bilat, no crackles Skin: no rashes, no edema Neurologic: AAOx3 Psychiatric: cooperative, interactive ICD10 Worksheet Patient Problems: Problems Problem Status Onset Chest pain Acute Troponin level elevated Acute
[2017-03-27 12:01] VITALS: BP 141/60; PULSE 97; RESP 16; TEMP 99.5; O2SAT 97
--- NOTE | 2017-03-27 15:19 | ASDISCHSUM ---
Discharge Information Plan Status:Home with No Needs Medically Cleared to Leave: Discharge Date:03/27/2017 12:46 PM CM D/C Disposition: ADT D/C Disposition:Home, Routine, Self-Care Projected Discharge Date:03/27/2017 12:46 PM Transportation at D/C: Discharge Delay Reason: Follow-Up Date:03/27/2017 12:46 PM Discharge Slot: Final Diagnosis: Placement Information Patient Contact Information Contact Name:KARIN Relationship:Dov Address:[address] City:[place] Alternate Phone: [facility]/Zip Code:[place] [address] Email: Financial Information Financial Class: Primary Plan Desc:MEDICARE INPATIENT Primary Plan Number:[id number] Secondary Plan Desc:[employer] Secondary Plan Number:[id number] Assessment Information [facility] Initial CM Assessment Living Arrangements What is your living Answers: With Spouse arrangement? Who do you live with? Type Of Residence What kind of residence do Answers: House you live in? Discharge Plan Comments Coordination Status Comments Notes: Pt is a 62 y/o female admitted for chest pain and elevated trop. Pt had a heart cath at 1PM this afternoon. Pt should not have any needs at time of d/c. Therapies have not been ordered. CM available for changes. Plan: Independent Date Signed: 03/26/2017 03:20 PM Electronically Signed By:ABBE Noel Intervention Information
[2017-03-27] MEDS ORDERED: ATORVASTATIN CALCIUM 40 MG TAB PO SCH (18:00)
--- NOTE | 2017-03-27 22:47 | GDS ---
[f rep st] DISCHARGE SUMMARY NEW AND ACUTE DIAGNOSES: 1. Cardiomyopathy secondary to Takotsubo syndrome. 2. Chest pain with mildly elevated troponin, and status post cardiac catheterization. 3. Coronary artery disease, demonstrating moderate left anterior descending disease. The patient wi ll be medically managed. CONSULTATION: Cardiology. PROCEDURES: Echocardiogram showing an EF of 46%. Mild to distal inferior septal hypokinesis, grade 1 diastolic dysfunction, and borderline concentric LV hypertrophy with mildly reduced systolic LV fun ction. Another procedure was a cardiac catheterization showing nonischemic cardiomyopathy with mildl y to moderately reduced left ventricular systolic function secondary to a mid ventricular variant of Takotsubo syndrome. The LAD showed 3-4 areas of stenosis up to 50% to 60%. The remainder of the LAD and its diagonal branches were normal. No stents were placed. HOSPITAL COURSE: A 62-year-old female presented with chest pain, and was noted to have elevated trop onins. Cardiac catheterization showed coronary artery disease with lesions in the LAD not amenable t o stent placement. Cardiac echo showed findings consistent with Dr. Melinda umanzor. The patient thus would be managed medically by adding lisinopril, as she has an EF of 40% for her cardiomyopathy and beginning beta blockers for her Takotsubo syndrome. In addition, her simvastatin will be change d to atorvastatin to improve her LDL. DISCHARGE MEDICATIONS: New medications: Atorvastatin 40 mg daily. Lisinopril 2.5 mg daily. Continue medications: Valium 10 mg daily. Proventil inhaler 2 puffs q.4 hours p.r.n. Triamterene H CTZ 37.5/25 mg tablet 1 each day. Trazodone 150 mg h.s. Prilosec 20 mg twice daily. Abilify 2.5 mg daily. Glucophage XR 1,000 mg daily. ASA 81 mg daily. Linzess 290 mcg daily. Stool softener. Ad helen PM. Neurontin 1,200 mg h.s. Vitamin D3 2,500 units daily. Dulera 200/5 mcg inhaler 1 inhalatio n twice daily. Flonase nasal spray, 2 sprays each nares h.s. Metoprolol 50 mg twice daily. Baclofe n 10 mg t.i.d. Zofran 4 mg p.o. p.r.n. Albuterol inhaler 1 puff twice daily. Vitamin B12 1,000 mcg daily. Herbal supplementation. Ferrous sulfate 325 mg daily. Percocet 5/325 mg tablet, 1-2 p.o. q .4 hours p.r.n. pain. Discontinued medications: Simvastatin 40 mg daily. FOLLOWUP: The patient will follow up with Dr. Keshav Quevedo in 3-5 days. TIME: This discharge required 45 minutes, greater than 50% to trauma counsellor and coordinate care. All ques tions were answered of the patient. /[id number]/MODL
== END 2017-03-27 12:46 | disposition home or self-care (01) | DRG 287 ==
LOC: EDUNIT# → EDBD → F2W 22:24
PROVIDERS: ADMIT Internal Medicine; ATTEND Internal Medicine
PROC: B2151ZZ Fluoroscopy of Left Heart using Low Osmolar Contrast (ICD-10-PCS; principal; 2017-03-26)
PROC: 4A023N7 Measurement of Cardiac Sampling and Pressure, Left Heart, Percutaneous Approach (ICD-10-PCS; principal; 2017-03-26)
PROC: B2111ZZ Fluoroscopy of Multiple Coronary Arteries using Low Osmolar Contrast (ICD-10-PCS; principal; 2017-03-26)
DX: I51.81 Takotsubo syndrome (principal); I25.10 Atherosclerotic heart disease of native coronary artery without angina pectoris; G89.29 Other chronic pain; E11.9 Type 2 diabetes mellitus without complications; R91.1 Solitary pulmonary nodule; Z79.84 Long term (current) use of oral hypoglycemic drugs
CPT/HCPCS: 82947-QW; C1760; J1644; J1650; J2250; J3010; Q9967

== ENCOUNTER 2017-04-05 18:33 | Inpatient (IN) | payer OTHER ==
--- NOTE | 2017-04-05 19:03 | CPEKG ---
Heart Rate: 87 RR Interval: 690 P-R Interval: 172 QRSD Interval: 72 QT Interval: 400 QTC Interval: 482 P [place]: 69 QRS [place]: 63 T Wave [place]: 115 EKG Severity - ABNORMAL ECG - EKG Impression: SINUS RHYTHM EKG Impression: LOW VOLTAGE THROUGHOUT EKG Impression: ABNORMAL T, CONSIDER ISCHEMIA, LATERAL LEADS Electronically Signed By: Jailyn Rojo 05-Apr-2017 23:30:07
--- NOTE | 2017-04-05 19:11 | EDPHY ---
H & P Time Seen by Provider: 04/05/17 18:40 HPI/ROS: HPI Chest pain. 62-year-old female by ambulance from the office of Dr. Love. This patient has a history of coronary artery disease. She was recently admitted for chest pain and had a large workup. She tells me that her coronary angiogram showed 60% stenosis of her LAD. At 5:30 p.m.. She was at her primary care physician's office. She developed substernal chest pain with radiation up into the right clavicle. She had associated nausea and 1 episode of vomiting. EMS was called. EN route she received 324 mg of chewed aspirin. On arrival now she denies any chest pain. ROS: Constitutional: No fever, no chills. No weakness. Eyes: No discharge. No changes in vision. ENT: No sore throat. No nasal congestion or rhinorrhea. Respiratory: No cough. No shortness of breath. Cardiac: As above, no palpitations. Gastrointestinal: No abdominal pain, as above, no diarrhea. Genitourinary: No hematuria. No dysuria or increased frequency with urination. Musculoskeletal: No back pain. No neck pain. No myalgias or arthralgias. Skin: No rashes. Neurological: No headache. No focal weakness or altered sensation. Past medical history: Review of the patient's medical records significant for left heart catheterization March 26 of this year with LAD disease noted between 30 and 60%. Assessment of this procedure was nonischemic cardiomyopathy secondary to Taco [place] both syndrome. Social history: Nonsmoker. Here by herself. No alcohol. Physical Exam: General Appearance: Alert, no distress. Mildly anxious. This patient is responding to questions appropriately and in full sentences. This patient appears well-hydrated and well-nourished. Eyes: Pupils equal and round no pallor or injection. No lid edema, erythema or injection. Respiratory: There are no retractions, lungs are clear to auscultation with good air movement bilaterally. Cardiovascular: Regular rate and rhythm. No murmur. Gastrointestinal: Abdomen is soft and nontender, no masses, bowel sounds normal. No focal tenderness at McBurney's point. No Barnes sign. Neurological: Motor sensory function is grossly intact. Cranial nerves are normal. Gait is normal. Skin: Warm and dry, no rashes. Musculoskeletal: Neck is supple and nontender. Extremities are symmetrical. All joints range without pain or impingement. Psychiatric: No agitation. No depression. Database: EKG: EKG time is 7:01 p.m.; EKG shows a narrow complex normal sinus rhythm with a ventricular rate of 87. The PA, QRS, QT intervals are within normal limits. There are no ST-T wave changes indicative of ischemic or injury pattern. No evidence of right heart strain. Interpreted by me. Imaging: Chest x-ray AP portable; the cardiac mediastinal silhouette is unremarkable. No evidence of infiltrate or pneumothorax. No acute cardiopulmonary disease process noted. Interpreted by me. Procedures: Emergency department course: Vital signs reviewed and are within normal limits. She is currently chest pain- free. She received aspirin per EMS. EKG obtained and reviewed by myself. 8:20 p.m., patient re-evaluated. She remains chest pain-free. She has had some nausea but no vomiting. Results of her diagnostic workup discussed with her and her . I discussed admission overnight for observation and further evaluation. She endorses. Hospitalist paged. 8:30 p.m., spoke with Dr. Axel Giordano. Case discussed in detail with him. He accepts this patient for admission. Patient's remaining emergency department course under my care unremarkable. Patient admitted to telemetry observation in stable condition. Differential Diagnosis: The differential diagnosis on this patient includes but is not limited to acute coronary syndrome. Myocardial infarction, pulmonary embolism, aortic dissection , biliary colic unlikely. This represents a partial list of diagnoses considered. These considerations are based on history, physical exam, past history, reassessment and diagnostic testing. Smoking Status: Never smoked Constitutional: Initial Vital Signs Temperature (C) 36.8 C 04/05/17 19:05 Heart Rate 88 04/05/17 19:05 Respiratory Rate 18 04/05/17 19:05 Blood Pressure 118/74 04/05/17 19:05 O2 Sat (%) 92 04/05/17 19:05 O2 Delivery Mode Room Air Allergies/Adverse Reactions: nabumetone [Nabumetone] Allergy (Severe, Verified 03/26/17 11:53) metaxalone [From Skelaxin] Allergy (Unknown, Verified 03/26/17 11:53) Sulfa (Sulfonamide Antibiotics) Allergy (Unknown, Verified 03/26/17 11:53) Home Medications: Medication Instructions Recorded ARIPiprazole [Abilify 5 mg (*)] 2.5 mg PO DAILY 01/19/10 Albuterol [Proventil Inhaler HFA 2 puffs IH Q4 PRN 01/19/10 (*)] Diazepam [Valium 10 MG (*)] 10 mg PO DAILY PRN 01/19/10 Omeprazole [Prilosec 20 mg] 20 mg PO BIDAC 01/19/10 Triamterene/Hydrochlorothiazid 1 each PO DAILY 01/19/10 [Triamterene-Hctz 37.5-25 mg Tb] traZODone [traZODone 150MG (*)] 150 mg PO HS 01/19/10 Albuterol [Proventil Inhaler HFA 1 puffs IH BID 03/25/17 (*)] Aspirin EC [Aspirin EC 81 mg (*)] 81 mg PO DAILY 03/25/17 Baclofen [Baclofen 10 mg (*)] 10 mg PO TID 03/25/17 Cholecalciferol Vit D3 [Vitamin D3 2,500 units PO DAILY18 03/25/17 (*)] Cyanocobalamin [Vitamin B12 (*)] 1,000 mcg PO DAILY18 03/25/17 Cyclobenzaprine [Flexeril 10 MG 10 mg PO DAILY PRN 03/25/17 (*)] Docusate Calcium [Stool Softener] 240 mg PO DAILY18 03/25/17 Ferrous Sulfate [Ferrous Sulf 325 325 mg PO DAILY18 03/25/17 MG (*)] Fluticasone Nasal [Flonase Nasal 2 sprays EACHNARE HS PRN 03/25/17 [place]] Gabapentin [Neurontin 300 MG (*)] 1,200 mg PO HS 03/25/17 Herbals/Supplements -Info Only 1 ea PO DAILY 03/25/17 Ibuprofen/Diphenhydramine Cit 2 each PO DAILY@22 03/25/17 [Advil Pm Caplet] Linaclotide [Linzess] 290 mcg PO DAILY 03/25/17 Metoprolol Tartrate [Lopressor 50 50 mg PO BID 03/25/17 mg (*)] Mometasone/Formoterol [Dulera 200 1 inh IH BID 03/25/17 Mcg/5 Mcg Inhaler] Ondansetron Odt [Zofran Odt 4 mg 4 mg PO DAILY PRN 03/25/17 (*)] metFORMIN SR [Glucophage XR 500 mg 1,000 mg PO DAILY AT 6PM 03/25/17 (*)] oxyCODONE/APAP 5/325 [Percocet 1 - 2 tab PO Q4-6PRN PRN 03/26/17 5/325 (*)] Atorvastatin Calcium 40 mg PO DAILY #30 tablet 03/27/17 Atorvastatin Calcium [Lipitor 40 40 mg PO DAILY18 #30 tab 03/27/17 mg (*)] Lisinopril [Zestril 2.5 mg (*)] 2.5 mg PO DAILY #30 tab 03/27/17 Medical Decision Making - Diagnostics Imaging Results: Imaging Impressions Chest X-Ray 04/05/17 19:02 Impression: No evidence for acute cardiopulmonary abnormality. - Data Points Laboratory Results: Laboratory Results 04/05/17 16:50 04/05/17 16:50 04/05/17 04/05/17 04/05/17 16:50 16:50 16:50 WBC 8.79 10^3/uL 10^3/uL (3.80-9.50) RBC 4.96 10^6/uL 10^6/uL (4.18-5.33) Hgb 12.9 g/dL g/dL (12.6-16.3) Hct 39.8 % % (38.0-47.0) MCV 80.2 fL L fL (81.5-99.8) MCH 26.0 pg L pg (27.9-34.1) MCHC 32.4 g/dL g/dL (32.4-36.7) RDW 16.4 % H % (11.5-15.2) Plt Count 310 10^3/uL 10^3/uL (150-400) MPV 9.8 fL fL (8.7-11.7) Neut % (Auto) 77.5 % H % (39.3-74.2) Lymph % (Auto) 15.2 % % (15.0-45.0) Wood % (Auto) 5.0 % % (4.5-13.0) Eos % (Auto) 1.1 % % (0.6-7.6) Baso % (Auto) 0.9 % % (0.3-1.7) Nucleat RBC Rel Count 0.0 % % (0.0-0.2) Absolute Neuts (auto) 6.80 10^3/uL H 10^3/uL (1.70-6.50) Absolute Lymphs (auto) 1.34 10^3/uL 10^3/uL (1.00-3.00) Absolute Monos (auto) 0.44 10^3/uL 10^3/uL (0.30-0.80) Absolute Eos (auto) 0.10 10^3/uL 10^3/uL (0.03-0.40) Absolute Basos (auto) 0.08 10^3/uL 10^3/uL (0.02-0.10) Absolute Nucleated RBC 0.00 10^3/uL 10^3/uL (0-0.01) Immature Gran % 0.3 % % (0.0-1.1) Immature Gran # 0.03 10^3/uL 10^3/uL (0.00-0.10) PT 13.7 SEC SEC (12.0-15.0) INR 1.03 (0.83-1.16) APTT 29.4 SEC SEC (23.0-38.0) Sodium 137 mEq/L mEq/L (135-145) Potassium 3.9 mEq/L mEq/L (3.5-5.2) Chloride 97 mEq/L mEq/L (97-110) Carbon Dioxide 23 mEq/l mEq/l (22-31) Anion Gap 17 mEq/L H mEq/L (8-16) BUN 14 mg/dL mg/dL (7-23) Creatinine 0.8 mg/dL mg/dL (0.6-1.0) Estimated GFR > 60 Glucose 101 mg/dL H mg/dL (70-100) Calcium 9.9 mg/dL mg/dL (8.5-10.4) Total Bilirubin 0.4 mg/dL mg/dL (0.1-1.4) Conjugated Bilirubin 0.3 mg/dL mg/dL (0.0-0.5) Unconjugated Bilirubin 0.1 mg/dL mg/dL (0.0-1.1) AST 21 IU/L IU/L (14-46) ALT 28 IU/L IU/L (9-52) Alkaline Phosphatase 97 IU/L IU/L (38-126) Creatine Kinase 32 IU/L IU/L (0-156) CK-MB (CK-2) Fraction 0.90 ng/mL ng/mL (0.00-3.19) Troponin I < 0.012 ng/mL ng/mL (0.000-0.034) Total Protein 6.8 g/dL g/dL (6.3-8.2) Albumin 4.2 g/dL g/dL (3.5-5.0) Lipase 97 IU/L IU/L (23-300) Departure - Departure Disposition: [facility] Inpatient Acute Clinical Impression: Chest pain, History of coronary artery disease
[2017-04-05 19:14] LABS: PLATELET COUNT 310 10^3/uL (150-400)
[2017-04-05 19:24] LABS: CREATINE KINASE 32 IU/L (0-156)
[2017-04-05 19:54] LABS: INR 1.03 (0.83-1.16); PROTIME(PATIENT) 13.7 SEC (12.0-15.0)
[2017-04-05] MEDS ORDERED: ALBUTEROL 60 PUFFS/8 GM MDI IH PRN (22:53)
[2017-04-05] MEDS ORDERED: ONDANSETRON 4 MG/2 ML VIAL IVP PRN (22:53)
[2017-04-05] MEDS ORDERED: HYDROmorphONE/DILAUDID 1 MG/ML INJ IVP PRN (22:53)
[2017-04-05] MEDS ORDERED: ACETAMINOPHEN 325 MG TAB PO PRN (22:53)
[2017-04-05] MEDS ORDERED: ZOLPIDEM TARTRATE 5 MG TAB PO PRN (22:53)
[2017-04-05] MEDS ORDERED: ALBUTEROL 3 ML DEYVIAL IH PRN (22:53)
[2017-04-05] MEDS ORDERED: HYDROCODONE/APAP 5/325 TAB PO PRN (22:53)
[2017-04-05] MEDS ORDERED: FLUTICASONE NASAL 120 SPRAYS/16 GM MDI EACHNARE PRN (22:57)
[2017-04-05] MEDS ORDERED: CYCLOBENZAPRINE 10 MG TAB PO PRN (22:57)
[2017-04-05] MEDS: GABAPENTIN 400 MG CAP PO SCH (23:44)
[2017-04-05] MEDS: BACLOFEN 10 MG TAB PO SCH (23:45)
[2017-04-05] MEDS: OXYCODONE/APAP 5/325 TAB PO PRN (23:45)
[2017-04-06] MEDS: Mometasone/Formoterol [Dulera 200 Mcg/5 Mcg Inhaler] 2 PUFFS IH SCH ×3 (00:21→20:26)
--- NOTE | 2017-04-06 00:50 | GHP ---
[f rep st] HISTORY AND PHYSICAL DATE OF ADMISSION: 04/05/2017 CHIEF COMPLAINT: Chest pain. HISTORY OF PRESENT ILLNESS: This is a 62-year-old female with a complaint of chest pain. She was in her PCPs office, Dr. Catina Love, when she had the onset of an epigastric pressure and pain, which pu shed upwardly to develop into chest pain with radiation in the upper chest and toward the left and ri ght arm. It was associated with a feeling of nausea without vomiting, but not associated with diapho resis. The pain was rated a 5/10 to 6/10, was persistent, and though she had a feeling of nausea, sh e did not vomit. Pain has been waxing and waning since that time, and because she was in her PCPs of claire, she was sent in to the emergency department for evaluation. The patient has a history recently of chest pain and was evaluated here and found to have known coronary artery disease with 4-5 areas in the LAD showing 50% to 60% stenosis, but her coronary arteries were otherwise clear. She underwen t a cardiac catheterization in March 2017. In addition to the coronary artery disease, it also aleksandr wed a Takotsubo syndrome with a left ventricular ejection fraction of 40%. She was placed on intensi ve medical management for the CAD and a beta-brittany for her Takotsubo syndrome. Since discharge on 03/27, she reports she has had several episodes of this type of chest pain. It is similar to as desc ribed above and will last for hours and then resolved. In addition to the above symptoms, she has also been having a cough with coughing spells in which kailey etimes, she vomits in the course of these coughing spells. She believes she has reflux disease and t akes Prilosec 20 mg b.i.d. She was seen recently by Dr. Jeancarlos Salvador and had an EGD and colonoscopy within the last 2 weeks, and she reports that everything was okay. I do not have that report to [facility] and corroborate that information. The cough she is reporting began before 01/2017 when she belie ves she had a flu syndrome. She did not take any medication. She describes the cough as dry, and as it persists, will then sometimes become productive. She reports it resolved sometime in March. S he has no history of the use of tobacco and no history of asthma. The patient also reports feeling very weak and tired. She was initially on a dose of metoprolol tart rate 50 mg b.i.d., and then was changed to metoprolol succinate 50 mg daily. When questioned about t his, it may be that the patient is in fact taking metoprolol succinate 50 mg b.i.d. mistakenly. It i s not clear what exactly she is taking, and when we have reviewed it and reviewed what has been presc ribed, she does seem to become unclear about it. In addition, she was also prescribed a new medicati on of lisinopril 2.5 mg daily. I believe she is taking that appropriately. The beta-brittany was pre scribed for her Takotsubo syndrome, but she additionally has a history of hypertension, for which she was also prescribed a new medication of amlodipine 2.5 mg daily on discharge from the hospital on . Thus, it is possible she is confusing medication, although I cannot clarify that hoa morris investigation will be necessary. PAST MEDICAL HISTORY: 1. Diabetes mellitus. 2. Hyperlipidemia, for which she has been changed to atorvastatin for improved management. 3. Hypertension with the recent addition of beta-blockers and amlodipine. 4. Bipolar disorder. 5. Chronic pain syndrome. 6. GERD by history, although she reports that her recent EGD and colonoscopy were entirely negative. PAST SURGICAL HISTORY: An appendectomy. REVIEW OF SYSTEMS: A 10-point review of systems is entirely negative except as been noted in the HPI . Specifically, she is denies having any recent fever, chills, sweats. The cough is as noted above. She also denies orthopnea or PND, but will endorse that she has episodes of chest pain if she is cl imbing steps and exerting herself. The chest pains, again, are as noted above. They will resolve so metimes quickly and sometimes persist for several hours. SOCIAL HISTORY: The patient is a nonsmoker, lives in [facility]. She is originally from [place], [place]. Her alcohol consumption is rare. Tobacco: None. Drugs: None. FAMILY HISTORY: Positive for coronary artery disease. Her brother had a quadruple bypass. CURRENT MEDICATIONS: Noted in the EMR and will be reconciled. These have been reviewed with the pha rmacist and there may be confusion in her dose of metoprolol. I suggest that we have her bring in he r bottles so that we can confirm what she is taking. PHYSICAL EXAMINATION: GENERAL: Pleasant female. VITAL SIGNS: Normal. Her oxygen saturation is no rmal on room air, and she is afebrile. Blood pressure is normal. Notably, her heart rate is 88-90 i n sinus rhythm without ectopy. There is no evidence of excessive beta blockade. HEENT: Shows that her tongue and buccal mucosa are normal, and the posterior oropharynx is without erythema or obstruct ion. NECK: Supple. LUNGS: Clear to percussion and auscultation. HEART: Singular S1, physiologic ally split S2. No murmur or gallop are appreciated. JVP is not elevated. ABDOMEN: Normoactive bow el sounds. There is a sense of pressure and discomfort on palpation deeply in the epigastrium, which in some ways reproduces the discomfort and pain she has described. It does not reproduce the extend ing pain up into her anterior chest, but it does reproduce a feeling of discomfort and a sense of praveen sea. There are no other findings of the abdomen. EXTREMITIES: No edema, cyanosis, clubbing. LABORATORY: For CBC is normal except for low MCV and MCHC suggestive of iron deficiency. Platelet c ount is normal. Neutrophils are slightly left-shifted but a normal total count. Coagulation normal. A chemistry panel shows a slightly elevated anion gap at 17, mild elevated glucose, and a normal tr oponin with a normal amylase of 97. Electrocardiogram reveals a normal sinus rhythm at 87. There is low voltage throughout, low voltage in the frontal plane, possibly suggestive of COPD, hyperinflation, or pericardial effusion. There is T-wave inversion in V1 and V2, possibly suggestive of ischemia. The V1, V2, I, and aVL all have inv erted T-waves. The ST segments are nonacute. ECG is according to my reading. Chest x-ray, to my re ading on the PACS system, there is a normal heart and normal pulmonary vasculature. Lungs are clear. There is no evidence of active cardiopulmonary disease. ASSESSMENT: 1. Acute chest pain in a lady with known coronary artery disease and known to have 4-5 lesions in th e left anterior descending along with significant cardiac risk factors. On her previous admission in 03/2017, she did have an elevated troponin and underwent cardiac catheterization with the noted find ings. She is under current intensive medical management for her coronary disease. This evening, her troponin is negative. A troponin series, of course, will be repeated, along with repeat ECG. There remains a possibility she is having ongoing cardiac ischemia. It is also known that she has Takotsu leland syndrome with a decreased left ventricular ejection fraction to 40%. At this time, she shows no s igns of decompensated systolic heart failure. Thus, at this time, we are going to cycle troponins an d rule out acute cardiac ischemia. The chest pain can then be further evaluated. 2. There remains a possibility this is of gastrointestinal origin and to some extent, the exam repro duces that pain. The records from the EGD done by Dr. Salvador approximately 2 weeks ago will need to be obtained. Her persistent cough in some way goes along with the possibility of reflux disease but again. This will need to be corroborated by EGD. 3. Possible medication confusion. Patient may be taking excessive beta blockers. Though it seems p ossible if she is confused about her medications, it also seems unlikely as her heart rate is in the 80s and 90s. Clinically, she does not show signs of excessive beta blockade, but it may be that the beta brittany is interfering with her pulmonary bronchodilators. She has a history of chronic obstruc tive pulmonary disease and bronchospasm for which she takes usual bronchodilator therapy. 4. Chronic asthma on chronic beta agonist therapy. Currently, she has adequate oxygenation and is n ot wheezing, although the beta blockers were a new medication for her Takotsubo syndrome. Thus, we n eed to consider if she is having exacerbation of her pulmonary disease secondary to the beta brittany. It is suggested that she have bedside spirometry for further clarification. 5. Diabetes mellitus. Her glucose is currently in an acceptable range. Glucose will be checked q.a .c. and h.s. and covered as needed. 6. Hypertension. This is currently in good control. 7. Chronic pain syndrome. We will order her usual pain medications. 8. She has chronic diagnoses of a bipolar disorder and gastroesophageal reflux disease. Note also t hat she has a history of hypertension, and amlodipine was a new medication added upon discharge on . Her blood pressure appears to be in good control and the amlodipine could possibly be stop ped. 9. Deep venous thrombosis prophylaxis will be with Lovenox as no procedure is being considered. 10. Code status: Full. 11. Billing status: Will be admitted to observation. Should this her chest pain persists without s ufficient clarification, she will need to be changed to inpatient status. TIME: This admission required 60 minutes. /[id number]/MODL
[2017-04-06] MEDS: OXYCODONE/APAP 5/325 TAB PO PRN ×4 (04:00→22:12)
[2017-04-06 04:37] LABS: PLATELET COUNT 305 10^3/uL (150-400)
[2017-04-06] MEDS: LISINOPRIL 2.5 MG TAB PO SCH (08:11)
[2017-04-06] MEDS: ASPIRIN EC 81 MG TAB PO SCH (08:11)
[2017-04-06] MEDS: PANTOPRAZOLE SODIUM 40 MG TAB PO SCH (08:11)
[2017-04-06] MEDS: METOPROLOL SUCCINATE XR 50 MG TAB PO SCH (08:11)
[2017-04-06] MEDS: BACLOFEN 10 MG TAB PO SCH ×3 (08:11→22:09)
[2017-04-06] MEDS: DOCUSATE SODIUM 100 MG CAP PO SCH ×2 (08:11→22:14)
[2017-04-06] MEDS: ENOXAPARIN 40 MG/0.4 ML SYR SC SCH (08:12)
[2017-04-06] MEDS: ARIPiprazole 5 MG TAB PO SCH (09:03)
--- NOTE | 2017-04-06 09:39 | CPEKG ---
Heart Rate: 79 RR Interval: 759 P-R Interval: 172 QRSD Interval: 74 QT Interval: 412 QTC Interval: 473 P [place]: 76 QRS [place]: 71 T Wave [place]: 95 EKG Severity - ABNORMAL ECG - EKG Impression: SINUS RHYTHM EKG Impression: LOW VOLTAGE THROUGHOUT EKG Impression: NONSPECIFIC T ABNORMALITIES, ANT-LAT LEADS Electronically Signed By: Bari Whitlock 06-Apr-2017 15:54:52
--- NOTE | 2017-04-06 10:52 | ECHO ---
[email or web address] [place] [id number] Main: [phone] Fax: Transthoracic Echocardiogram Name: ROCHELLE SIMONS MR#: [id number] Study Date: 04/06/2017 Study Time: 09:34 AM Date of : 1955 Age: 62 year(s) Height: 157.5 cm (62 in.) Weight: 72.58 kg (160 lb.) BSA: 1.74 m2 Gender: Female Examination: Limited Echo Indication: Chest pain with know history of recent 115 takotsubo syndrome Image Quality: Contrast: Requested by: Axel Giordano BP: 115 mmHg/60 mmHg Heart Rate: Rhythm: Indication: Chest pain with know history of recent takotsubo syndrome Procedure Staff Event Representative: Christie Hawkins [facility] Reading Physician: Santiago Coronado Requesting Provider: Conclusions: No pericardial effusion. Concentric left ventricular hypertrophy. Ejection fraction 65%. Measurements: Chambers Valvular Assessment AV/MV Valvular Assessment TV/PV Normal Normal Normal Name Value Range Name Value Range Name Value Range LVDd (2D): 3.9 cm (3.9 cm-5.3 TR Vmax: 1.93 mm/s ( - ) cm) TR PGmax: 15 mmHg ( - ) EF Range: 65-70 % syst. PAP: 20 mmHg ( - ) Continued Measurements: Valvular Assessment TV/PV Name Value CVP (est.): 5 mmHg Findings: Left Ventricle: Borderline concentric LV hypertrophy. Normal global systolic LV function. The ejection fraction is estimated to be 65-70 %. No regional wall motion abnormality. Mitral Valve: Mild mitral valve regurgitation is present. Tricuspid Valve: Mild tricuspid regurgitation is present. Pericardium: There is pericardial fat. Exam Comments: Patient: ROCHELLE SIMONS Study Date: 04/06/2017 Page 1 of 2 09:34 AM The EF has improved from the echo on 03/26/17. . (No Signature Object) Patient: ROCHELLE SIMONS Study Date: 04/06/2017 Page 2 of 2 09:34 AM [id number]
--- NOTE | 2017-04-06 11:40 | HOSPPROG ---
Hospitalist Progress Note Assessment/Plan: #H/o Takosubo's: echo today shows improved EF 46-->65%. No WMA on echo -cont Lisinopril, BB. #Dizziness: mild hypotension this morning, negative orthostatics. Suspect due to cardiac medications. Recently started on Norvasc, BB changed to Toprol (/ ). Will stop Norvasc and monitor -does have a positive UA, will treat #UTI: culture pending, IV CTX #Chronic asthma: stable on RA #Diabetes: metformin #Chest pain: known CAD. Serial trops negative and EKGs unchanged from prior with TWIs anterior leads. Low suspicion for PE with no tachycardia and stable on RA #Arm tingling: h/o cervical stenosis. Neuro exam intact, not suspected CVA #Chronic neck/back pain: baclofen, Percocet #DVT ppx: Lovenox #Disp: warrants inpatient admission with persistent dizziness. Monitor on telemetry, BP med adjustment, IV abx # Subjective: dizzy this morning. No CP. Increased urinary urgency last few days. c/o arm BL arm tingling, not new Objective: Vital Signs Temp Pulse Resp BP Pulse Ox 36.9 C 79 17 118/60 99 04/06/17 07:55 04/06/17 07:55 04/06/17 07:55 04/06/17 07:55 04/06/17 07:55 Laboratory Results 04/06/17 04:08 04/06/17 04:08 04/05/17 04/06/17 04/07/17 05:59 05:59 05:59 Intake Total 500 Balance 500 PT 13.7 SEC (12.0-15.0) 04/05/17 16:50 INR 1.03 (0.83-1.16) 04/05/17 16:50 - Time Spent With Patient Time Spent with Patient: greater than 35 minutes Time Spent with Patient: Greater than 35 minutes spent on this patients care, greater than 50% of time spent counseling, educating, and coordinating care regarding the above mentioned plan. - Physical Exam Constitutional: no apparent distress Eyes: PERRL Ears, Nose, Mouth, Throat: moist mucous membranes Cardiovascular: regular rate and rhythym, no murmur, rub, or gallop Respiratory: no respiratory distress Gastrointestinal: normoactive bowel sounds Genitourinary: no bladder fullness Skin: warm, No rash Musculoskeletal: other (slighlty decreased ROM LUE.) Neurologic: AAOx3, sensation intact bilaterally, CN II-XII Intact, No weakness, No numbness, No facial droop Psychiatric: anxious ICD10 Worksheet Patient Problems: Problems Problem Status Onset Chest pain Acute History of coronary artery disease Acute Troponin level elevated Acute
--- NOTE | 2017-04-06 14:12 | ASMTCMCOM ---
CM Note CM Note Notes: 04/06/2017 Case Management Note Revewed pt during interdisciplinary rounds today. There are no case management d/c needs identified d/t pt age, marital status and activity levels prior to admission. There are no PT or OT evals ordered at this time. Case Management d/c poc: anticipating home independent with follow up as directed. Case Management available if needs change. Date Signed: 04/06/2017 02:11 PM Electronically Signed By:Mehnaz Carter RN
[2017-04-06] MEDS: cefTRIAXone 1 GM in STERILE WATER INJ 10 ML IV SCH (15:48)
[2017-04-06] MEDS: ONDANSETRON DISINTEGRATING 4 MG TAB PO PRN (16:25)
--- NOTE | 2017-04-06 16:56 | PDMN ---
Medical Necessity Medical necessity: Change to IP, as of 04/06/17, per MD; los >2 mn for ongoing management of persistent dizziness & UTI; admit for further monitoring, med management & IV abx; hx diabetes & htn; per progress note & order 04/06/17
[2017-04-06] MEDS ORDERED: FERROUS SULFATE 325 MG TAB PO SCH (18:00)
[2017-04-06] MEDS ORDERED: CYANO/VITAMIN B12 1000 MCG TAB PO SCH (18:00)
[2017-04-06] MEDS ORDERED: ATORVASTATIN CALCIUM 40 MG TAB PO SCH (18:00)
[2017-04-06] MEDS ORDERED: metFORMIN SR 500 MG TAB PO SCH (18:00)
[2017-04-06] MEDS ORDERED: CHOLECALCIFEROL VIT D3 1,000 UNITS TAB PO SCH (18:00)
[2017-04-06] MEDS: GABAPENTIN 400 MG CAP PO SCH (22:09)
[2017-04-07] MEDS: cefTRIAXone 1 GM in STERILE WATER INJ 10 ML IV SCH (08:04)
[2017-04-07] MEDS: Mometasone/Formoterol [Dulera 200 Mcg/5 Mcg Inhaler] 2 PUFFS IH SCH (08:04)
[2017-04-07] MEDS: ENOXAPARIN 40 MG/0.4 ML SYR SC SCH (08:05)
[2017-04-07] MEDS: ASPIRIN EC 81 MG TAB PO SCH (08:05)
[2017-04-07] MEDS: DOCUSATE SODIUM 100 MG CAP PO SCH (08:05)
[2017-04-07] MEDS: LISINOPRIL 2.5 MG TAB PO SCH (08:05)
[2017-04-07] MEDS: PANTOPRAZOLE SODIUM 40 MG TAB PO SCH (08:05)
[2017-04-07] MEDS: METOPROLOL SUCCINATE XR 50 MG TAB PO SCH (08:05)
[2017-04-07] MEDS: BACLOFEN 10 MG TAB PO SCH ×2 (08:05→15:15)
[2017-04-07] MEDS: ARIPiprazole 5 MG TAB PO SCH (08:06)
[2017-04-07] MEDS: ONDANSETRON DISINTEGRATING 4 MG TAB PO PRN (10:13)
[2017-04-07 11:43] VITALS: RESP 16
[2017-04-07 15:14] VITALS: BP 136/69; PULSE 85; TEMP 97.9; O2SAT 93
--- NOTE | 2017-04-07 17:33 | GDS ---
[f rep st] DISCHARGE SUMMARY DISCHARGE DIAGNOSES: 1. Dizziness. 2. Mild hypertension associated with medication. 3. History of Takotsubo cardiomyopathy. 4. Pyuria. 5. Chronic asthma. 6. Diabetes. 7. Chest pain. 8. Chronic cervical stenosis with neck and back pain. HISTORY OF PRESENT ILLNESS: A 62-year-old female with a history of coronary artery disease, recently hospitalized in March for chest pain. At that time, she underwent a cardiac catheterization that showed an LAD lesion, 50% to 60% and demonstrated Takotsubo cardiomyopathy with an EF of 40%. She was placed on intensive medical management for coronary disease, and a beta brittany and lisinopril for Takotsubo's. Since being discharged 03/27, she reports several episodes of chest pain that radiate toward her left and right arms, which is associated with nausea without vomiting, but no associated shortness of breath or diaphoresis. She was recently seen by her bench worker helper, 04/02/2017. At that time, metoprolol was changed to Toprol and Norvasc 2.5 mg was started. For the past few days she has felt very confused and lightheaded, and very weak and tired. HOSPITAL COURSE BY PROBLEM: 1. Dizziness: Suspect this is cardiac medication related. She recently started amlodipine. This was held here with improvement of her blood pressure. She had negative orthostatic's. There had negative troponins and EKG. Echocardiogram was reassuring and actually showed improvement of her EF to 65% ( previously 40). She had pyuria but a negative urine culture. 2. Coronary artery disease: Continue medical management with metoprolol, lisinopril, aspirin, and statin. 3. Takotsubo cardiomyopathy: EF has actually improved. Will resume her lisinopril, Maxzide, and Toprol. Discontinue Norvasc. I contacted Dr. Quevedo, who was in agreement with this plan. She will follow up with him as previously scheduled. 4. Cervical stenosis, chronic neck and back pain: Resume home pain medications and baclofen. 5. Pyuria: She reported increased urgency. Was started on ceftriaxone but had a negative culture, so this was discontinued. 6. Diabetes: Resume metformin. 7. Social issues: reports can be verbally aggressive. Not violent. She feels safe at home. Counseled on calling police or shelters. DISPOSITION: Patient is stable for discharge home with family. MEDICATIONS: Stopped Norvasc. FOLLOWUP: 1. Dr. Quevedo, cardiology. 2. PCP. PHYSICAL EXAMINATION: VITAL SIGNS: Today temperature 36.6, blood pressure is 136/69, heart rate is in the 80s, respirations 16, 93% in room air. GENERAL: Well-appearing, sitting up in bed, in no acute distress. HEENT: PERRLA. EOMI. Oropharynx clear. CV: Regular rate and rhythm without murmurs, gallops , or rubs. LUNGS: Clear. No crackles or wheezing. ABDOMEN: Soft, nontender , nondistended. Positive bowel sounds. : No Christensen. MUSCULOSKELETAL: 5/5 upper and lower extremity strength. NEURO: 2 through 12 intact. PSYCH: Anxious /[id number]/MODL Time spent on DC: 60 min counseling patient on medication changes, follow with doctor and personal safety at home. FERNANDA
[2017-04-08] MEDS ORDERED: CEPHALEXIN 500 MG CAP PO SCH (09:00)
== END 2017-04-07 16:58 | disposition home or self-care (01) | DRG 313 ==
LOC: EDUNIT# → F2W 22:00 → OBSVTOIN 04-06 15:21
PROVIDERS: ADMIT Internal Medicine Pulmonary Disease; ATTEND Internal Medicine
DX: R07.9 Chest pain, unspecified (principal); I25.10 Atherosclerotic heart disease of native coronary artery without angina pectoris; R42 Dizziness and giddiness; I95.2 Hypotension due to drugs; T46.5X5A Adverse effect of other antihypertensive drugs, initial encounter; M48.02 Spinal stenosis, cervical region; E11.9 Type 2 diabetes mellitus without complications; R82.71 Bacteriuria; J45.909 Unspecified asthma, uncomplicated; E78.5 Hyperlipidemia, unspecified; F31.9 Bipolar disorder, unspecified
CPT/HCPCS: J0696; J1650; J7613

== ENCOUNTER 2017-05-11 18:30 | Emergency (ER) | payer OTHER ==
--- NOTE | 2017-05-11 19:54 | EDPHY ---
H & P Stated Complaint: multiple complaints, hallucinating, thoughts "jumbled" Source: Patient, Family () Exam Limitations: Clinical condition - Personal History Current Tetanus/Diphtheria Vaccine: Yes Current Tetanus Diphtheria and Acellular Pertussis (TDAP): Yes Tetanus Vaccine Date: < 10 years - Medical/Surgical History Hx Asthma: Yes Hx Chronic Respiratory Disease: No Hx Diabetes: Yes Hx Cardiac Disease: Yes Hx Renal Disease: No Hx Cirrhosis: No Hx Alcoholism: No Hx HIV/AIDS: No Hx Splenectomy or Spleen Trauma: No Other PMH: DM, HTN, Bipolar, Asthma, Anemia, Appy, CAD - Social History Smoking Status: Former smoker Time Seen by Provider: 05/11/17 19:54 HPI/ROS: HPI: This is a 62-year-old female who presents with Chief Complaint: multiple complaints, hallucinating, thoughts "jumbled" Location:psych Quality: Hallucinating Duration: Several days Signs and Symptoms: + auditory and visual command hallucinations,no suicidal ideation with a plan, no homicidal ideation, not paranoid Timing: Acute on chronic Severity: Moderate to severe Context: Patient has a history of bipolar disorder takes Abilify daily but has not taken today presents accompanied by her with several day history of not being able to think straight, her thoughts were jumbled, mind thinks 1 thing in mouth says another, auditory and visual hallucinations, repeat things without realizing that she is doing it, can't follow 1 train of thought, repetitive movements and some trouble reading. Patient fell earlier in the day and broke 2 toes on her left foot. She was seen by the urgent care and placed in walking boot. She has extreme flight of ideas and is clearly manic. Modifying Factors: None Comment: ROS: see HPI Constitutional: No fever, no chills, no weight loss Eyes: No blurred vision Respiratory: No shortness of breath, no cough Cardiovascular: No chest pain Gastrointestinal: No nausea, no vomiting, no diarrhea Genitourinary: No dysuria Extremities: No myalgias Neurologic: No weakness, no numbness Skin: No rashes Hematologic: No bruising, no bleeding MEDICAL/SURGICAL/SOCIAL HISTORY: Medical/Surgical history: DM, HTN, Bipolar, Asthma, Anemia, Appy, CAD Social history: . CONSTITUTIONAL: Pleasant cooperative middle-aged female, awake and alert, no obvious distress HEENT: Atraumatic and normocephalic, PERRL, EOMI. Tympanic membranes clear. Oropharynx clear, no exudate and moist pink mucosa. Airway patent. No lymphadenopathy. No meningismus. Cardiovascular: Normal S1/S2, regular rate, regular rhythm, without murmur rub or gallop. PULMONARY/CHEST: Symmetrical and nontender. Clear to auscultation bilaterally. Good air movement. No accessory muscle usage. ABDOMEN: Soft, nondistended, nontender, no rebound, no guarding, no peritoneal signs, no masses or organomegaly. No CVAT. EXTREMITIES: 2/2 pulses, strength 5/5, no deformities, no clubbing, no cyanosis or edema. NEUROLOGICAL: no focal neuro deficits. GCS 15. SKIN: Warm and dry, no erythema. no rash. Good capillary refill. PSYCH: Poor eye contact, + flight of ideas, tangential disorganized thought process, wear insight and judgment, + auditory and visual command hallucinations , no suicidal ideation with a plan, no homicidal ideation, not paranoid (Heather,Terra) Constitutional: Initial Vital Signs Temperature (C) 37.7 C 05/11/17 18:41 Heart Rate 126 H 05/11/17 18:41 Respiratory Rate 20 05/11/17 18:41 Blood Pressure 149/91 H 05/11/17 18:41 O2 Sat (%) 92 05/11/17 18:41 O2 Delivery Mode Room Air O2 (L/minute) 2 Allergies/Adverse Reactions: nabumetone [Nabumetone] Allergy (Severe, Verified 05/11/17 18:40) metaxalone [From Skelaxin] Allergy (Unknown, Verified 05/11/17 18:40) Sulfa (Sulfonamide Antibiotics) Allergy (Unknown, Verified 05/11/17 18:40) Home Medications: Medication Instructions Recorded ARIPiprazole [Abilify 5 mg (*)] 2.5 mg PO DAILY06 01/19/10 Albuterol [Proventil Inhaler HFA 2 puffs IH Q4 PRN 01/19/10 (*)] Diazepam [Valium 10 MG (*)] 10 mg PO DAILY PRN 01/19/10 Omeprazole [Prilosec 20 mg] 40 mg PO BIDAC 01/19/10 traZODone [traZODone 150MG (*)] 150 mg PO HS 01/19/10 Aspirin EC [Aspirin EC 81 mg (*)] 81 mg PO DAILY 03/25/17 Baclofen [Baclofen 10 mg (*)] 10 mg PO TID 03/25/17 Cholecalciferol Vit D3 [Vitamin D3 2,500 units PO DAILY18 03/25/17 (*)] Cyclobenzaprine [Flexeril 10 MG 10 mg PO DAILY PRN 03/25/17 (*)] Docusate Calcium [Stool Softener] 240 mg PO DAILY18 03/25/17 Fluticasone Nasal [Flonase Nasal 2 sprays EACHNARE BID PRN 03/25/17 [place]] Gabapentin [Neurontin 300 MG (*)] 1,200 mg PO HS 03/25/17 Ibuprofen/Diphenhydramine Cit 2 each PO DAILY@22 03/25/17 [Advil Pm Caplet] Linaclotide [Linzess] 290 mcg PO DAILY06 03/25/17 Mometasone/Formoterol [Dulera 200 2 puffs IH BID 03/25/17 Mcg/5 Mcg Inhaler] Ondansetron Odt [Zofran Odt 4 mg 4 mg PO DAILY PRN 03/25/17 (*)] metFORMIN SR [Glucophage XR 500 mg 1,000 mg PO DAILY AT 6PM 03/25/17 (*)] oxyCODONE/APAP 5/325 [Percocet 1 - 2 tab PO Q4-6PRN PRN 03/26/17 5/325 (*)] Atorvastatin Calcium [Lipitor 40 40 mg PO DAILY18 #30 tab 03/27/17 mg (*)] Metoprolol Succinate Xr [Toprol Xl 50 mg PO DAILY06 04/05/17 50 mg (*)] Lisinopril [Zestril 2.5 mg (*)] 2.5 mg PO DAILY06 04/23/17 Triamterene/Hctz 37.5/25 [Dyazide 1 each PO DAILY06 04/23/17 37.5/25 (*)] Medical Decision Making ED Course/Re-evaluation: 2004: Placed on M1 hold upon arrival due to severe lexie and being gravely disabled. Labs and UDS ordered. Given 2 L normal saline as tachycardic along with Zofran. 2320: Reviewed labs and UDS; urine is positive for marijuana benzodiazepine. Creatinine 1.2; slightly elevated above baseline but received 2 L normal saline. Medically clear for mental health evaluation. This patient was seen under the supervision of my secondary supervising physician. I evaluated care for this patient independently. Discussed this patient with Dr. Isbell who did not see the patient. 0015: End of Shift. Signed over to Dr. Chu pending mental health evaluation and final disposition. (Yadira Romero) Differential Diagnosis: Differential diagnosis includes but is not limited to functional in situational depression, manic episode, bipolar disorder, psychosis, delusional. (Yadira Romero) Other Provider: 0020 care assumed by me from DIANA Romero pending mental health evaluation. 0700 patient signed out to Dr. Jere davis pending re-evaluation. No issues during the care of the patient overnight. (Axel Chu) I assumed care of the patient at 7:[address] Chu. Patient was seen and evaluated by [facility] this morning. Her hold was vacated by the psychiatrist at 9:15 a.m.. Patient is currently lucid, no longer psychotic, no longer having hallucinations not she has been placed back on her medications. Please see the discharge information and consult note from [facility]. Patient was discharged with her in improved condition. (Emerald Oquendo) - Data Points Laboratory Results: Laboratory Results 05/11/17 20:15 05/11/17 20:15 Medications Given: Discontinued Medications Acetaminophen (Tylenol) 650 mg PO EDNOW ONE Stop: 05/11/17 21:47 Last Admin: 05/11/17 21:50 Dose: 650 mg Aripiprazole (Abilify) 2 mg PO ONCE ONE Stop: 05/12/17 20:34 Last Admin: 05/11/17 21:50 Dose: 2 mg Baclofen (Baclofen) 10 mg PO EDNOW ONE Stop: 05/12/17 02:30 Last Admin: 05/12/17 02:39 Dose: 10 mg Diphenhydramine HCl (Benadryl) 25 mg PO EDNOW ONE Stop: 05/12/17 02:30 Last Admin: 05/12/17 02:39 Dose: 25 mg Gabapentin (Neurontin) 1,200 mg PO EDNOW ONE Stop: 05/12/17 02:30 Last Admin: 05/12/17 02:38 Dose: 1,200 mg Sodium Chloride (Ns) 1,000 mls @ 3,000 mls/hr IV ONCE ONE Stop: 05/11/17 20:40 Last Admin: 05/11/17 20:23 Dose: 1,000 mls Sodium Chloride (Ns) 1,000 mls @ 0 mls/hr IV ONCE ONE PRN Reason: Wide Open Stop: 05/11/17 22:22 Last Admin: 05/11/17 22:23 Dose: 1,000 mls Ibuprofen (Motrin) 600 mg PO EDNOW ONE Stop: 05/12/17 02:30 Last Admin: 05/12/17 02:38 Dose: 600 mg Ondansetron HCl (Zofran) 4 mg IVP EDNOW ONE Stop: 05/11/17 20:22 Last Admin: 05/11/17 20:27 Dose: 4 mg Ondansetron HCl (Zofran Odt) 4 mg PO EDNOW ONE Stop: 05/11/17 21:22 Last Admin: 05/12/17 11:10 Dose: Not Given Ondansetron HCl (Zofran) 4 mg IVP EDNOW ONE Stop: 05/11/17 21:30 Last Admin: 05/11/17 21:33 Dose: 4 mg Oxycodone/Acetaminophen (Percocet 5/325) 1 tab PO EDNOW ONE Stop: 05/12/17 02:30 Last Admin: 05/12/17 02:38 Dose: 1 tab Oxycodone/Acetaminophen (Percocet 5/325) 1 tab PO EDNOW ONE Stop: 05/12/17 04:17 Last Admin: 05/12/17 04:19 Dose: 1 tab Pantoprazole Sodium (Protonix) 40 mg PO EDNOW ONE Stop: 05/11/17 21:47 Last Admin: 05/11/17 21:50 Dose: 40 mg Trazodone HCl (Trazodone) 150 mg PO HS ABDON Stop: 11/08/17 02:59 Last Admin: 05/12/17 03:15 Dose: 150 mg Departure - Departure Disposition: Home, Routine, Self-Care Clinical Impression: Bipolar 1 disorder with moderate lexie Bipolar disorder (manic depression) Qualifiers: Active/Remission status: remission status unspecified Qualified Code(s): F31.9 - Bipolar disorder, unspecified Condition: Good Instructions: Bipolar Disorder (ED) Additional Instructions: Please resume your normal medications. Please follow up with your therapist as scheduled. Referrals: Catina Love MD [Primary Care Provider] - As per Instructions
[2017-05-11] MEDS ORDERED: ONDANSETRON 4 MG/2 ML VIAL IVP ONE ×2 (20:21→21:29)
[2017-05-11] MEDS ORDERED: NS 1,000 ML IV ONE ×2 (20:21→22:21)
[2017-05-11 20:25] LABS: PLATELET COUNT 362 10^3/uL (150-400)
[2017-05-11] MEDS ORDERED: ONDANSETRON DISINTEGRATING 4 MG TAB PO ONE (21:21)
[2017-05-11] MEDS ORDERED: ONDANSETRON 4 MG/2 ML VIAL ONE (21:28)
[2017-05-11] MEDS ORDERED: ACETAMINOPHEN 325 MG TAB PO ONE (21:46)
[2017-05-11] MEDS ORDERED: PANTOPRAZOLE SODIUM 40 MG TAB PO ONE (21:46)
[2017-05-12] MEDS ORDERED: BACLOFEN 20 MG TAB PO ONE (02:29)
[2017-05-12] MEDS ORDERED: GABAPENTIN 300 MG CAP PO ONE (02:29)
[2017-05-12] MEDS ORDERED: diphenhydrAMINE 25 MG CAP PO ONE (02:29)
[2017-05-12] MEDS ORDERED: OXYCODONE/APAP 5/325 TAB PO ONE ×2 (02:29→04:16)
[2017-05-12] MEDS ORDERED: IBUPROFEN 600 MG TAB PO ONE (02:29)
[2017-05-12] MEDS ORDERED: BACLOFEN 10 MG TAB ONE (02:36)
[2017-05-12] MEDS ORDERED: OXYCODONE/APAP 5/325 TAB ONE (04:17)
[2017-05-12 11:31] VITALS: BP 140/76; PULSE 98; RESP 14; TEMP 97.5; O2SAT 96
[2017-05-12] MEDS ORDERED: ARIPiprazole 2 MG TAB PO ONE (20:33)
== END 2017-05-12 11:30 | disposition home or self-care (01) ==
PROC: GZ11ZZZ Psychological Tests, Personality and Behavioral (ICD-10-PCS; principal; 2017-05-11)
DX: F31.2 Bipolar disorder, current episode manic severe with psychotic features (principal); E11.9 Type 2 diabetes mellitus without complications; I10 Essential (primary) hypertension; J45.909 Unspecified asthma, uncomplicated; I25.10 Atherosclerotic heart disease of native coronary artery without angina pectoris; Z87.891 Personal history of nicotine dependence; Z79.82 Long term (current) use of aspirin; Z79.84 Long term (current) use of oral hypoglycemic drugs
CPT/HCPCS: 90791; 96361; 96374; 96376; 99284; J2405; 80305; G0480

== ENCOUNTER → 2017-05-11 | Outpatient (CLI) | payer OTHER | LOC: BMCIMAGING 11:25 | PROVIDERS: ATTEND Family Medicine | DX: S92.325A Nondisplaced fracture of second metatarsal bone, left foot, initial encounter for closed fracture (principal); S92.335A Nondisplaced fracture of third metatarsal bone, left foot, initial encounter for closed fracture ==

== ENCOUNTER → 2017-05-20 | Outpatient (CLI) | payer OTHER | LOC: BMCIMAGING 08:50 | PROVIDERS: ATTEND Podiatrist Foot & Ankle Surgery | DX: S92.325D Nondisplaced fracture of second metatarsal bone, left foot, subsequent encounter for fracture with routine healing (principal) ==

== ENCOUNTER → 2017-06-10 | Outpatient (CLI) | payer OTHER | LOC: BMCIMAGING 08:07 | PROVIDERS: ATTEND Podiatrist Foot & Ankle Surgery | DX: S92.322D Displaced fracture of second metatarsal bone, left foot, subsequent encounter for fracture with routine healing (principal); S92.332D Displaced fracture of third metatarsal bone, left foot, subsequent encounter for fracture with routine healing ==

== ENCOUNTER → 2017-07-01 | Outpatient (CLI) | payer OTHER | LOC: BMCIMAGING 10:24 | PROVIDERS: ATTEND Podiatrist Foot & Ankle Surgery | DX: S92.325D Nondisplaced fracture of second metatarsal bone, left foot, subsequent encounter for fracture with routine healing (principal) | CPT/HCPCS: 86317-90 ==

== ENCOUNTER → 2017-07-02 | Outpatient (CLI) | payer OTHER ==
[~2017-07-02] MED LIST changes: -BUPIVACAINE 0.5% 10 ML SDV ONE; +IOPAMIDOL (ISOVUE-300) 100 ML BTL ONE; -LIDOCAINE 1% 300 MG/30 ML SDV ONE; -THROMBIN (BOVINE) 5,000 UNIT VIAL TP ONE
== END ==
LOC: FIMAGING 10:27
PROVIDERS: ATTEND Nurse Practitioner Family
DX: R91.8 Other nonspecific abnormal finding of lung field (principal)
CPT/HCPCS: 71260; Q9967

== ENCOUNTER → 2017-07-13 | Outpatient (CLI) | payer OTHER | LOC: BMCIMAGING 10:57 | PROVIDERS: ATTEND Podiatrist Foot & Ankle Surgery | DX: S92.325D Nondisplaced fracture of second metatarsal bone, left foot, subsequent encounter for fracture with routine healing (principal) ==

== ENCOUNTER → 2017-07-29 | Outpatient (CLI) | payer OTHER | LOC: BMCIMAGING 10:26 | PROVIDERS: ATTEND Podiatrist Foot & Ankle Surgery | DX: S92.322D Displaced fracture of second metatarsal bone, left foot, subsequent encounter for fracture with routine healing (principal); S92.332D Displaced fracture of third metatarsal bone, left foot, subsequent encounter for fracture with routine healing; S92.342D Displaced fracture of fourth metatarsal bone, left foot, subsequent encounter for fracture with routine healing ==

== ENCOUNTER → 2017-08-26 | Outpatient (CLI) | payer OTHER | LOC: BMCIMAGING 13:53 | PROVIDERS: ATTEND Podiatrist Foot & Ankle Surgery | DX: S92.325D Nondisplaced fracture of second metatarsal bone, left foot, subsequent encounter for fracture with routine healing (principal) ==

== ENCOUNTER → 2017-10-13 | Outpatient (CLI) | payer OTHER | DX: M25.471 Effusion, right ankle (principal); M21.41 Flat foot [pes planus] (acquired), right foot ==

== ENCOUNTER → 2017-12-02 | Outpatient (CLI) | payer OTHER | LOC: BMCIMAGING 13:30 | PROVIDERS: ATTEND Internal Medicine | DX: Z12.31 Encounter for screening mammogram for malignant neoplasm of breast (principal) ==

== ENCOUNTER → 2017-12-27 | Outpatient (CLI) | payer OTHER | LOC: BHFA 13:00 | PROVIDERS: ATTEND Internal Medicine Cardiovascular Disease | DX: Z01.810 Encounter for preprocedural cardiovascular examination (principal) | CPT/HCPCS: 78452; 93017; A9500; J2785 ==

== ENCOUNTER → 2018-02-15 | Outpatient (CLI) | payer OTHER | LOC: BMCIMAGING 09:17 | PROVIDERS: ATTEND Neurological Surgery | DX: M54.2 Cervicalgia (principal); M50.320 Other cervical disc degeneration, mid-cervical region, unspecified level; I77.9 Disorder of arteries and arterioles, unspecified ==

== ENCOUNTER → 2018-04-05 | Outpatient (CLI) | payer OTHER, MEDICARE | LOC: FIMAGING 11:41 | PROVIDERS: ATTEND Allergy & Immunology Allergy | DX: J98.4 Other disorders of lung (principal); I25.10 Atherosclerotic heart disease of native coronary artery without angina pectoris ==

== ENCOUNTER → 2018-04-26 | Outpatient (CLI) | payer OTHER, MEDICARE | LOC: BMCIMAGING 10:34 | PROVIDERS: ATTEND Podiatrist Foot & Ankle Surgery | DX: M79.672 Pain in left foot (principal); M21.42 Flat foot [pes planus] (acquired), left foot ==

== ENCOUNTER → 2018-04-29 | Outpatient (CLI) | payer OTHER, MEDICARE | LOC: FIMAGING 17:42 | PROVIDERS: ATTEND Podiatrist Foot & Ankle Surgery | DX: M76.72 Peroneal tendinitis, left leg (principal); S86.312D Strain of muscle(s) and tendon(s) of peroneal muscle group at lower leg level, left leg, subsequent encounter; S93.492D Sprain of other ligament of left ankle, subsequent encounter; R42 Dizziness and giddiness; R51 Headache; R26.9 Unspecified abnormalities of gait and mobility; G47.10 Hypersomnia, unspecified ==

== ENCOUNTER → 2018-05-11 | Outpatient (CLI) | payer OTHER, MEDICARE ==
[~2018-05-11] MED LIST changes: +GADOBUTROL 10 ML VIAL IVP ONE; -IOPAMIDOL (ISOVUE-300) 100 ML BTL ONE
== END ==
LOC: FIMAGING 06:34
PROVIDERS: ATTEND Psychiatry & Neurology Neurology
DX: G43.109 Migraine with aura, not intractable, without status migrainosus (principal); G47.10 Hypersomnia, unspecified; R90.82 White matter disease, unspecified
CPT/HCPCS: 70549; 70553; A9585

== ENCOUNTER 2018-05-12 19:48 | Emergency (ER) | payer OTHER, MEDICARE ==
--- NOTE | 2018-05-12 21:38 | EDPHY ---
H & P Stated Complaint: lower abd pain, constipation x1 week Time Seen by Provider: 05/12/18 20:44 HPI/ROS: Chief complaint: Constipation History of present illness: This is a 63-year-old female who presents to the emergency department for constipation. She states she has not had a bowel movement in 1 week. She normally goes every 1-2 days. She started developed some abdominal discomfort. She denies other associated signs or symptoms including no fevers, no nausea or vomiting, no urinary symptoms. Review of systems: A 10 point review of systems was obtained and other than described above was negative - Personal History Current Tetanus/Diphtheria Vaccine: Yes Tetanus Vaccine Date: < 10 years - Medical/Surgical History Hx Asthma: Yes Hx Chronic Respiratory Disease: No Hx Diabetes: Yes Hx Cardiac Disease: Yes Hx Renal Disease: No Hx Cirrhosis: No Hx Alcoholism: No Hx HIV/AIDS: No Hx Splenectomy or Spleen Trauma: No Other PMH: DM, HTN, Bipolar, Asthma, Anemia, Appy, CAD, high cholesterol - Social History Smoking Status: Former smoker - Physical Exam Exam: General Appearance: Alert, no distress. Eyes: Pupils equal and round no pallor or injection. ENT, Mouth: Mucous membranes moist. Respiratory: There are no retractions, lungs are clear to auscultation. Cardiovascular: Regular rate and rhythm. Gastrointestinal: Bowel sounds are normal. Abdomen is soft and nondistended. Mild tenderness. No guarding or other peritoneal signs. Neurological: Alert. Skin: Warm and dry, no rashes. Musculoskeletal: Neck is supple non tender. Extremities are symmetrical, full range of motion. Psychiatric: Patient is oriented X 3, there is no agitation. Constitutional: Initial Vital Signs Temperature (C) 37.3 C 05/12/18 19:53 Heart Rate 99 05/12/18 19:53 Respiratory Rate 16 05/12/18 19:53 Blood Pressure 134/68 H 05/12/18 19:53 O2 Sat (%) 93 05/12/18 19:53 O2 Delivery Mode Room Air Allergies/Adverse Reactions: nabumetone [Nabumetone] Allergy (Severe, Verified 05/12/18 19:55) Swelling/neck,face,throat metaxalone [From Skelaxin] Allergy (Unknown, Verified 05/12/18 19:55) Swelling/neck,face,throat Sulfa (Sulfonamide Antibiotics) Allergy (Unknown, Verified 05/12/18 19:55) Rash Home Medications: Medication Instructions Recorded ARIPiprazole [Abilify 5 mg (*)] 01/19/10 Albuterol [Proventil Inhaler HFA 01/19/10 (*)] Omeprazole [Prilosec 20 mg] 01/19/10 traZODone [traZODone 150MG (*)] 01/19/10 Aspirin EC [Aspirin EC 81 mg (*)] 03/25/17 Baclofen [Baclofen 10 mg (*)] 03/25/17 Cholecalciferol Vit D3 [Vitamin D3 03/25/17 (*)] Cyclobenzaprine [Flexeril 10 MG 03/25/17 (*)] Gabapentin [Neurontin 300 MG (*)] 03/25/17 Ibuprofen/Diphenhydramine Cit 03/25/17 [Advil Pm Caplet] Linaclotide [Linzess] 03/25/17 Mometasone/Formoterol [Dulera 200 03/25/17 Mcg/5 Mcg Inhaler] metFORMIN SR [Glucophage XR 500 mg 03/25/17 (*)] Metoprolol Succinate Xr [Toprol Xl 04/05/17 50 mg (*)] Triamterene/Hctz 37.5/25 [Dyazide 04/23/17 37.5/25 (*)] Atorvastatin Calcium [Lipitor 40 04/27/18 mg (*)] DIAZEPAM 05/12/18 Dulera 100 Mcg/5 Mcg Inhaler 05/12/18 Ecotrin 05/12/18 Ipratropium 05/12/18 Ondansetron HCl [Zofran] 05/12/18 Peg 3350/Na Sulf,Bicarb,Cl/KCl 2,000 ml PO ONCE #1 btl 05/12/18 [Golytely (RX)] Percocet 5-325 mg Tablet 05/12/18 Spiriva Inhaler (RX) 05/12/18 Medical Decision Making - Diagnostics Imaging Results: Imaging Impressions Abdomen X-Ray 05/12/18 20:59 Impression: Constipation. Imaging: I viewed and interpreted images myself ED Course/Re-evaluation: Patient seen under the supervision of my secondary supervising physician Dr. Jailyn Rojo. Patient presents to the emergency department reporting constipation. She is nontoxic. Benign abdominal exam. Rectal exam does not reveal evidence of impaction. KUB is obtained and consistent with constipation. She will be discharged home. Asked to take magnesium citrate and Colace. If symptoms persist she can then take a GoLYTELY prescription. She is to follow up with her primary care doctor for recheck. Strict return precautions are given. Patient voiced understanding and agreement with plan. Differential Diagnosis: Included but not limited to constipation, fecal impaction, bowel obstruction Departure - Departure Disposition: Home, Routine, Self-Care Clinical Impression: Constipation Qualifiers: Constipation type: unspecified constipation type Qualified Code(s): K59.00 - Constipation, unspecified Condition: Good Instructions: Constipation (ED) Additional Instructions: Follow-up with your primary care doctor within a week for recheck Please get a bottle of magnesium citrate intake as directed In addition use Colace as directed If after day this does not cause you to have a bowel movement use the prescription for GoLYTELY If symptoms worsen or new symptoms develop return to the emergency room for recheck Referrals: Catina Love MD [Primary Care Provider] - As per Instructions Prescriptions: Peg 3350/Na Sulf,Bicarb,Cl/KCl [Golytely (RX)] 2,000 ml PO ONCE #1 btl
[2018-05-12 21:55] VITALS: BP 141/58
== END 2018-05-12 22:02 | disposition home or self-care (01) ==
DX: K59.00 Constipation, unspecified (principal)

== ENCOUNTER 2018-05-15 09:17 | Inpatient (IN) | payer OTHER, MEDICARE ==
--- NOTE | 2018-05-15 09:32 | EDPHY ---
General - History Smoking Status: Former smoker Time Seen by Provider: 05/15/18 09:29 Narrative: CLINICAL IMPRESSION: Sigmoid colon diverticulitis, constipation ASSESSMENT/PLAN: Patient is a 63-year-old female with a history of diabetes, hypertension, bipolar disorder, asthma, chronic anemia, coronary disease, hyperlipidemia and diverticulitis who presents to the emergency department complaining of constipation, fever, nausea, vomiting, abdominal distention and abdominal discomfort. Patient is afebrile, she is very uncomfortable appearing however not toxic-appearing. Her abdomen was distended, bowel sounds were present, she was diffusely tender however most tender in the lower abdomen with out rebound or guarding. Laboratory studies were obtained which revealed mild leukocytosis of 11,000, mild hypokalemia at 3.1 however no evidence of acute kidney injury. CT abdomen and pelvis revealed findings suggestive of sigmoid diverticulitis without evidence of abscess or perforation. Patient was given IV fluids, antiemetic and narcotic with improvement of her pain. IV antibiotics were initiated which included Levaquin and Flagyl. She will be admitted to the hospitalist service for further observation and management, I spoke directly with Carlos and she will be admitted to Dr. Islas. On repeat examination prior to transfer to the floor she is much more comfortable appearing, her abdomen was soft, distended with diffuse tenderness to palpation , no evidence of a surgical abdomen. History and physical exam is most consistent with acute sigmoid diverticulitis. DIFFERENTIAL DX: Abdominal pain including but not limited to constipation, bowel obstruction, perforation, appendicitis, cholecystitis, gastritis and urinary tract infection. ED COURSE: 0931: In reviewing records patient was seen 3 days prior for complaints of constipation, and abdominal x-ray was obtained which revealed constipation. 1055: On reexamination the patient is much more comfortable appearing. Laboratory studies revealed mild leukocytosis, no evidence of acute kidney injury. Still awaiting CT. CHIEF COMPLAINT: Constipation HPI: Patient is a 63-year-old female with a history of diabetes, hypertension, bipolar disorder, asthma, chronic anemia, coronary artery disease, hyperlipidemia and diverticulitis who presents to the emergency department with ongoing complaints of constipation as well as fever, nausea, vomiting, decreased appetite and worsening abdominal discomfort. Patient reports she has been having issues with ongoing constipation for the last 10 days, was seen and evaluated in our emergency department 3 days prior with complaints of constipation. Patient reports she has been taking Mag citrate as prescribed, she had 1 bowel movement yesterday that was low volume. She is now experiencing low-grade fever, nausea, vomiting and abdominal distention. She denies any chest pain, shortness of breath or back pain. She has not had any hematemesis. Her urinary output is decreased and she endorses dark colored urine, denies any dysuria. She does have a history of diverticulitis and states that it feels similar to when she had an episode years prior. She denies any melena or hematochezia. Last colonoscopy was 1 year prior which revealed diverticulosis, no other reported abnormal findings. PMH: Diabetes mellitus, hypertension, bipolar, asthma, anemia, coronary artery disease, hyperlipidemia Pertinent Past Surgical History: Appendectomy Family History: Noncontributory Social History: Former smoker REVIEW OF SYSTEMS: All other systems negative Constitutional: Fever, decreased appetite. Eyes: No discharge, vision change ENT: No sore throat, congestion, ear pain. Cardiovascular: No chest pain, no palpitations. Respiratory: No cough, no shortness of breath. Gastrointestinal: Abdominal pain, nausea, vomiting and constipation. Genitourinary: Dark urine. No hematuria, dysuria, flank pain, pelvic pain. Musculoskeletal: No back pain, joint swelling, joint pain, myalgias. Skin: No rashes, color change. Neurological: No headache, dizziness, weakness. PHYSICAL EXAM: General Appearance: Very uncomfortable appearing however not toxic-appearing. HENT: Normocephalic, atraumatic. Bilateral external ears are normal. Bilateral tympanic membranes are normal with pearly piedra reflex. Nares are clear, mucosa is pink. Oropharynx is clear, mucosa is very dry, uvula is midline. There is no tonsillar enlargement or exudate. The dentition is normal. Eyes: PERRLA, EOMI intact. Conjunctiva pink, no pallor or injection. Neck: Supple, nontender, no lymphadenopathy, no midline pain, FROM, no meningismus. Respiratory: There are no retractions, lungs are clear to auscultation. Cardiac: Regular rate and rhythm, no murmurs or gallops. Gastrointestinal: Abdomen is distended, she has a well-healed incision in the right lower quadrant. Bowel sounds are present. Patient has diffuse tenderness to palpation however she is most tender in the generalized lower abdomen without rebound or guarding. Neurological: Alert and oriented x 3, CN 2-12 grossly intact, normal gait no ataxia, DTR's intact, normal sensation and strength Skin: Warm, dry, no rashes, no nodules on palpation. Musculoskeletal: Extremities are symmetrical, full range of motion, no tenderness, deformity, swelling, or erythema. Psychiatric: Patient is oriented X 3, there is no agitation. MEDICAL DECISION MAKING: Patient was seen independently. Secondary supervising physician at time of evaluation was Dr. Motta, he did not evaluate this patient. Diagnosis: Sigmoid diverticulitis, Constipation. New, requires workup Summary: See Assessment and Plan for summary of ED visit Clinical lab tests: ordered / reviewed. Independent visualization of images, tracing, or specimens: Yes. Decision to obtain medical records or history from someone other than the patient: No Review / Summarize previous medical records: Yes Discussed patient with another provider: Yes, Dr. Motta Patient Progress: Stable, admit. (Chely Montilla) Medical Decision Making: I did not see this patient while she was in the emergency department. However her care was discussed with the PA while the patient was in the department. I agree with treatment plan and management (Smith Motta) - Diagnostics Imaging Results: Imaging Impressions Abdomen CT 05/15/18 09:39 Impression: 1. Pronounced constipation, with evidence of sigmoid colon diverticulitis. The presence of intraluminal fecal material could potentially obscure a sigmoid mass , and clinical correlation and follow-up to include repeat CT evaluation in 4-6 weeks is suggested. 2. Small amount of free fluid in the upper paracolic gutters and in the caudal pelvic cul-de-sac. 3. Gallbladder hydrops, with no cholelithiasis, cholecystitis, or bile duct dilatation. Findings and recommendations were discussed with Chely Montilla PA-C at 11:50 a.m. on May 15, 2018. - Objective Vital Signs: Initial Vital Signs Temperature (C) 37 C 05/15/18 09:22 Heart Rate 98 05/15/18 09:22 Respiratory Rate 16 05/15/18 09:22 Blood Pressure 144/85 H 05/15/18 09:22 O2 Sat (%) 91 L 05/15/18 09:22 O2 Delivery Mode Nasal Cannula O2 (L/minute) 1 Allergies/Adverse Reactions: nabumetone [Nabumetone] Allergy (Severe, Verified 05/15/18 09:22) Swelling/neck,face,throat metaxalone [From Skelaxin] Allergy (Unknown, Verified 05/15/18 09:22) Swelling/neck,face,throat Sulfa (Sulfonamide Antibiotics) Allergy (Unknown, Verified 05/15/18 09:22) Rash Home Medications: Medication Instructions Recorded ARIPiprazole [Abilify 5 mg (*)] 2.5 mg PO DAILY 01/19/10 Omeprazole [Prilosec 20 mg] 20 mg PO BID 01/19/10 traZODone [traZODone 150MG (*)] 150 mg PO DAILY 01/19/10 Baclofen [Baclofen 10 mg (*)] 10 mg PO TID 03/25/17 Cholecalciferol Vit D3 [Vitamin D3 2,000 units PO DAILY 03/25/17 (*)] Gabapentin [Neurontin 300 MG (*)] 1,200 mg PO HS 03/25/17 Linaclotide [Linzess] 290 mg PO DAILY 03/25/17 metFORMIN SR [Glucophage XR 500 mg 1,000 mg PO DAILY 03/25/17 (*)] Metoprolol Succinate Xr [Toprol Xl 100 mg PO DAILY 04/05/17 50 mg (*)] Triamterene/Hctz 37.5/25 [Dyazide 1 each PO DAILY 04/23/17 37.5/25 (*)] Atorvastatin Calcium [Lipitor 40 40 mg PO HS 04/27/18 mg (*)] Aspirin [Ecotrin] 81 mg PO DAILY 05/12/18 Ipratropium [place] [IPRATROPIUM 2 sprays EACHNARE BID 05/12/18 BROMIDE] Mometasone/Formoterol [Dulera 100 2 puffs IH BID 05/12/18 Mcg/5 Mcg Inhaler] Ondansetron HCl [Zofran] 4 mg PO DAILY PRN 05/12/18 Tiotropium [place] [Spiriva 2 puffs IH BID 05/12/18 Respimat] oxyCODONE/APAP 5/325 [Percocet 1 - 2 tab PO Q6H 05/12/18 5/325 (*)] Albuterol Sulfate [Proair 2 puffs IH BID 05/15/18 Respiclick] Ascorbic Acid [C-1000] 1,000 mg PO DAILY 05/15/18 Cyanocobalamin [Vitamin B12 (*)] 1,000 mcg PO DAILY 05/15/18 Docusate Calcium [Stool Softener] 240 mg PO DAILY 05/15/18 Levocetirizine Dihydrochloride 5 mg PO DAILY 05/15/18 [Xyzal] Laboratory Results: Laboratory Results 05/15/18 10:20 05/15/18 10:20 05/15/18 05/15/18 05/15/18 10:20 10:20 10:00 WBC 10.83 10^3/uL H 10^3/uL (3.80-9.50) RBC 5.16 10^6/uL 10^6/uL (4.18-5.33) Hgb 14.0 g/dL g/dL (12.6-16.3) Hct 41.7 % % (38.0-47.0) MCV 80.8 fL L fL (81.5-99.8) MCH 27.1 pg L pg (27.9-34.1) MCHC 33.6 g/dL g/dL (32.4-36.7) RDW 13.5 % % (11.5-15.2) Plt Count 362 10^3/uL 10^3/uL (150-400) MPV 9.5 fL fL (8.7-11.7) Neut % (Auto) 76.6 % H % (39.3-74.2) Lymph % (Auto) 15.0 % % (15.0-45.0) [place] % (Auto) 6.6 % % (4.5-13.0) Eos % (Auto) 0.7 % % (0.6-7.6) Baso % (Auto) 0.6 % % (0.3-1.7) Nucleat RBC Rel Count 0.0 % % (0.0-0.2) Absolute Neuts (auto) 8.30 10^3/uL H 10^3/uL (1.70-6.50) Absolute Lymphs (auto) 1.62 10^3/uL 10^3/uL (1.00-3.00) Absolute Monos (auto) 0.72 10^3/uL 10^3/uL (0.30-0.80) Absolute Eos (auto) 0.08 10^3/uL 10^3/uL (0.03-0.40) Absolute Basos (auto) 0.06 10^3/uL 10^3/uL (0.02-0.10) Absolute Nucleated RBC 0.00 10^3/uL 10^3/uL (0-0.01) Immature Gran % 0.5 % % (0.0-1.1) Immature Gran # 0.05 10^3/uL 10^3/uL (0.00-0.10) Sodium 133 mEq/L L mEq/L (135-145) Potassium 3.1 mEq/L L mEq/L (3.5-5.2) Chloride 93 mEq/L L mEq/L (97-110) Carbon Dioxide 28 mEq/l mEq/l (22-31) Anion Gap 12 mEq/L mEq/L (6-14) BUN 16 mg/dL mg/dL (7-23) Creatinine 0.9 mg/dL mg/dL (0.6-1.0) Estimated GFR > 60 Glucose 110 mg/dL H mg/dL (70-100) Calcium 9.3 mg/dL mg/dL (8.5-10.4) Total Bilirubin 0.7 mg/dL mg/dL (0.1-1.4) Conjugated Bilirubin 0.4 mg/dL mg/dL (0.0-0.5) Unconjugated Bilirubin 0.3 mg/dL mg/dL (0.0-1.1) AST 19 IU/L IU/L (14-46) ALT 19 IU/L IU/L (9-52) Alkaline Phosphatase 128 IU/L H IU/L (38-126) Total Protein 7.0 g/dL g/dL (6.3-8.2) Albumin 4.4 g/dL g/dL (3.5-5.0) Lipase 52 IU/L IU/L (23-300) Urine Color YELLOW Urine Appearance MODERATELY TURBID Urine pH 7.0 (5.0-7.5) Ur Specific [place] 1.019 (1.002-1.030) Urine Protein NEGATIVE (NEGATIVE) Urine Ketones NEGATIVE (NEGATIVE) Urine Blood NEGATIVE (NEGATIVE) Urine Nitrate NEGATIVE (NEGATIVE) Urine Bilirubin NEGATIVE (NEGATIVE) Urine Urobilinogen NEGATIVE EU EU (0.2-1.0) Ur Leukocyte Esterase NEGATIVE (NEGATIVE) Urine Glucose NEGATIVE (NEGATIVE) Medications Given: Bisacodyl (Dulcolax Rectal) [address] BID PRN PRN Reason: Constipation Stop: 11/11/18 14:10 Last Admin: 05/15/18 15:00 Dose: 10 mg Hydromorphone HCl (Dilaudid) 0.4 mg IVP Q4HRS PRN PRN Reason: Pain, Severe Unable to Take PO Stop: 05/25/18 13:44 Last Admin: 05/15/18 14:13 Dose: 0.4 mg Ondansetron HCl (Zofran) 4 mg IVP Q4 PRN PRN Reason: Nausea/Vomiting, Can't Take PO Stop: 11/11/18 09:39 Last Admin: 05/15/18 10:20 Dose: 4 mg Discontinued Medications Hydromorphone HCl (Dilaudid) 0.5 mg IVP EDNOW ONE Stop: 05/15/18 09:41 Last Admin: 05/15/18 10:18 Dose: 0.5 mg Hydromorphone HCl (Dilaudid) 0.5 mg IVP EDNOW ONE Stop: 05/15/18 12:16 Last Admin: 05/15/18 12:33 Dose: 0.5 mg Sodium Chloride (Ns) 1,000 mls @ 0 mls/hr IV ONCE ONE PRN Reason: Wide Open Stop: 05/15/18 09:41 Last Admin: 05/15/18 10:20 Dose: 1,000 mls Levofloxacin/Dextrose (Levaquin 750 Mg (Premix)) 150 mls @ 100 mls/hr IV EDNOW ONE PRN Reason: Protocol Stop: 05/15/18 13:38 Last Admin: 05/15/18 12:32 Dose: 150 mls Metronidazole/Sodium Chloride (Flagyl 500 Mg (Premix)) 100 mls @ 100 mls/hr IV EDNOW ONE PRN Reason: Protocol Stop: 05/15/18 13:08 Last Admin: 05/15/18 12:31 Dose: 100 mls Potassium Chloride (Potassium Cl 10 Meq (Premix)) 100 mls @ 100 mls/hr IV Q1H ABDON Stop: 05/15/18 15:59 Last Admin: 05/15/18 15:47 Dose: Not Given Departure - Departure Disposition: [facility] Inpatient Acute Clinical Impression: Sigmoid diverticulitis Condition: Fair
[2018-05-15] MEDS ORDERED: ONDANSETRON 4 MG/2 ML VIAL IVP PRN (09:40)
[2018-05-15] MEDS ORDERED: NS 1,000 ML IV ONE (09:40)
[2018-05-15] MEDS ORDERED: HYDROmorphONE/DILAUDID 2 MG/ML INJ IVP ONE ×2 (09:40→12:15)
[2018-05-15] MEDS ORDERED: IOPAMIDOL (ISOVUE-300) 100 ML BTL ONE (10:25)
[2018-05-15 10:32] LABS: PLATELET COUNT 362 10^3/uL (150-400)
[2018-05-15] MEDS ORDERED: ONDANSETRON DISINTEGRATING 4 MG TAB PO PRN (13:38)
[2018-05-15] MEDS ORDERED: ACETAMINOPHEN 325 MG TAB PO PRN (13:38)
[2018-05-15] MEDS ORDERED: NS 1,000 ML IV SCH (13:45)
[2018-05-15] MEDS ORDERED: BISACODYL 10 MG SUPP PR PRN (14:11)
[2018-05-15] MEDS: HYDROmorphONE/DILAUDID 1 MG/ML INJ IVP PRN ×2 (14:13→21:58)
[2018-05-15] MEDS: POTASSIUM Cl (KCl) 100 ML IV SCH ×2 (14:15→15:47)
[2018-05-15] MEDS ORDERED: D50W 25 GM/50 ML SYR IVP PRN (14:25)
--- NOTE | 2018-05-15 14:55 | GHP ---
[f rep st] HISTORY AND PHYSICAL DATE OF ADMISSION: 05/15/2018 CHIEF COMPLAINT: Abdominal pain with constipation. HISTORY OF PRESENT ILLNESS: The patient is a 63-year-old female who has a history of diabetes, hyper tension, bipolar disorder, asthma, chronic anemia, coronary artery disease, hyperlipidemia, chronic p ain on continuous narcotics, and diverticulitis who presented to the emergency room with complaints o f constipation with abdominal pain, fever, and nausea. She states that she has significant abdominal distention and abdominal discomfort with 1 bout of vomiting in the last 24 hours. She tells me that she presented to the emergency room on 05/12/2018 with complaints of constipation. At that time, feli pitts was treated and sent home. Now she returns with increasing abdominal pain and continued constipati on. REVIEW OF SYSTEMS: Comprehensive 10-point review of systems is negative other than noted in the HPI. PAST MEDICAL HISTORY: Diabetes, hypertension, bipolar disorder, asthma, chronic pain on continuous o pioids, chronic anemia, coronary artery disease, hyperlipidemia, diverticulitis. PAST SURGICAL HISTORY: Appendectomy. FAMILY HISTORY: Noncontributory. No diverticulitis. SOCIAL HISTORY: The patient used to smoke tobacco but no longer smokes. She denies any alcohol use. PHYSICAL EXAM: GENERAL: She is alert, oriented, in no acute distress. Not uncomfortable. VITAL SI GNS: Afebrile at 36.6, pulse 78, respiratory rate 16, blood pressure is 120/67, she is saturating 95 % on 1 L. HEENT: Normocephalic. Atraumatic. Mucosal membranes are moist. Pupils equal, round, re active to light. RESPIRATORY: Lungs are clear to auscultation bilaterally. No rhonchi or wheezes n oted. CARDIOVASCULAR: Regular rate and rhythm. No gallop or murmur appreciated. GASTROINTESTINAL: Abdomen is distended. Bowel sounds are severely diminished. There is no rigidity. There is no gu arding. There is no rebound tenderness. NEUROLOGICAL: The patient is focally intact. SKIN: Warm and dry without rashes or lesions. MUSCULOSKELETAL: Extremities are symmetrical. Full range of mot ion. ALLERGIES: To sulfa, metaxalone, nabumetone. RADIOLOGICAL STUDIES: CT of the abdomen showed pronounced constipation with evidence of sigmoid colo n diverticulitis. LABORATORY EVALUATION: Leukocytosis 10.83. Sodium 133 with a potassium of 3.1. HOME MEDICATIONS: Please refer to home medication reconciliation as an extensive list. ASSESSMENT/PLAN: The patient is a 63-year-old female with complaints of abdominal pain with constipa tion. She is being evaluated and admitted for 1. Constipation. She does tell me that she drank 2 bottles of magnesium citrate 1 day prior with on ly a small result. She is distended with minimal bowel sounds; however, she is not currently nauseou s or having any vomiting. If she does begin to vomit or have complications, NG tube should strongly be considered. 2. Diverticulitis. This was present on the patient's CAT scan of her abdomen. I personally reviewe d this and spoken to the emergency room provider. We will continue her antibiotic therapy with Flagy l and levofloxacin. She does state that she has had 1 bout of diverticulitis in the past that has re solved with antibiotic therapy. 3. Chronic pain on continuous narcotics. We will hold the patient's narcotics as she is only having sips and chips of liquid at this time. This likely presents a complication with her constipation an d should be addressed with her in the future. We will give her IV narcotics to help support the evangelina ent's pain and prevent her from having any narcotic withdrawal. 4. History of hypertension. Home medications will be continued to the best of our ability with inte rmittent IV antihypertensive medications. 5. Diabetes mellitus. We will place the patient on sliding scale insulin. She normally takes metfo rmin but would not continue that in this setting. 6. Asthma. She does not appear to have any signs of acute exacerbation at this time. 7. Hypokalemia. I have ordered for potassium replacement to be given. We will continue supportive IV fluid therapy with pain management and IV antibiotics. She will be made inpatient given I suspect it will require greater than 48 hours for the patient's condition to completely improve. /[id number]/MODL
--- NOTE | 2018-05-15 15:38 | ASMTCMCOM ---
CM Note CM Note Notes: Pt has been admitted with constipation, diverticulitis, hypokalemia. She was in the ED 05/12 with similar sx. She has a hx of opioid dependence for chronic pain. She is currently being treated with IVF and IV ABX. CM will follow for any d/c needs. D/C plan: TBD Date Signed: 05/15/2018 03:37 PM Electronically Signed By:FLORENCE Prince
--- NOTE | 2018-05-15 15:40 | PDMN ---
Medical Necessity Medical necessity: MCG M150 Acute Diverticulitis, A-2 days: 63 yo w/ recent tx for constipation presents w/ abd pain and distension, nausea, fever w/ ongoing constipation issues. Eval reveals constipation w/ abd distention and minimal bowel sounds, acute sigmoid colon diverticulitis w/ pronounced constipation on imaging. NPO, IV fluids started, IV antibx started. Anticipate >2MN for tx/ management of the above w/ IV parenteral tx and IV fluid support. Hx DM, HTN, bipolar, asthma, chronic anemia, CAD, HLD, chronic pain and diverticulitis.
[2018-05-15] MEDS: INSULIN LISPRO 100 UNIT/ML SC SCH (18:47)
[2018-05-15] MEDS ORDERED: metFORMIN HCL 500 MG TAB PO SCH (20:30)
[2018-05-15] MEDS: ATORVASTATIN CALCIUM 40 MG TAB PO SCH (20:35)
[2018-05-15] MEDS: GABAPENTIN 300 MG CAP PO SCH (20:35)
[2018-05-15] MEDS ORDERED: IPRATROPIUM 0.03% NASAL SPRAY EACHNARE SCH (21:00)
[2018-05-15] MEDS ORDERED: IPRATROPIUM 0.06% NASAL SPRAY EACHNARE SCH (21:00)
[2018-05-15] MEDS ORDERED: Mometasone/Formoterol [Dulera 100 Mcg/5 Mcg Inhaler] 2 PUFFS IH SCH (21:00)
[2018-05-15] MEDS ORDERED: POLYETHYLENE GLYCOL 3350 17 GM PKT PO PRN (21:20)
[2018-05-15] MEDS ORDERED: metFORMIN HCL 500 MG TAB PO ONE (21:45)
[2018-05-15] MEDS: BACLOFEN 20 MG TAB PO SCH (21:47)
[2018-05-15] MEDS: CETIRIZINE 10 MG TAB PO SCH (21:50)
[2018-05-15] MEDS: ALBUTEROL SULFATE IH SCH (21:58)
[2018-05-15] MEDS: Tiotropium Bromide [Spiriva Respimat] 2 PUFFS IH SCH (21:59)
[2018-05-15] MEDS ORDERED: MELATONIN 3 MG TAB PO PRN (22:35)
[2018-05-15] MEDS: diphenhydrAMINE 25 MG CAP PO PRN (23:04)
[2018-05-16] MEDS: PANTOPRAZOLE SODIUM 40 MG TAB PO SCH ×3 (02:17→22:35)
[2018-05-16] MEDS ORDERED: METOPROLOL SUCCINATE XR 50 MG TAB PO SCH ×2 (07:00→09:00)
[2018-05-16] MEDS: INSULIN LISPRO 100 UNIT/ML SC SCH ×3 (07:58→18:06)
[2018-05-16] MEDS ORDERED: levOFLOXACIN 500 MG/DEXTROSE 100 ML IV SCH (09:00)
[2018-05-16] MEDS: Tiotropium Bromide [Spiriva Respimat] 2 PUFFS IH SCH ×2 (09:25→21:21)
[2018-05-16] MEDS: Mometasone/Formoterol [Dulera 100 Mcg/5 Mcg Inhaler] 2 PUFFS IH SCH ×2 (09:26→21:21)
[2018-05-16] MEDS: ALBUTEROL SULFATE IH SCH ×2 (09:26→21:21)
[2018-05-16] MEDS: BACLOFEN 10 MG TAB PO SCH ×2 (10:05→22:35)
[2018-05-16] MEDS: ARIPiprazole 5 MG TAB PO SCH (10:05)
[2018-05-16] MEDS: ENOXAPARIN 40 MG/0.4 ML SYR SC SCH ×2 (10:06→10:17)
[2018-05-16] MEDS: IPRATROPIUM 0.03% NASAL SPRAY EACHNARE SCH ×2 (10:07→16:27)
--- NOTE | 2018-05-16 10:09 | HOSPPROG ---
Hospitalist Progress Note Assessment/Plan: #Acute diverticulitis: CTX, Flagyl #Severe constipation: having BMs #Hemorrhoids: steroid suppository #Hypokalemia: replete #Chronic pain with opioid dependency: contributing to to constipation #CAD: statin, BB #Bipolar d/o #Diet: as tolerated #DVT ppx: Lovenox Inpatient admission for abx, antiemetics. Can DC if clinically improved tomorrow Subjective: large amount of stool this morning. Still with some lower crampy abd pain Objective: Vital Signs Temp Pulse Resp BP Pulse Ox 37.0 C 80 14 99/52 L 98 05/16/18 07:43 05/16/18 09:28 05/16/18 09:28 05/16/18 07:43 05/16/18 09:28 Laboratory Results 05/16/18 04:40 05/15/18 05/16/18 05/17/18 05:59 05:59 05:59 Intake Total 750 Balance 750 - Time Spent With Patient Time Spent with Patient: greater than 35 minutes Time Spent with Patient: Greater than 35 minutes spent on this patients care, greater than 50% of time spent counseling, educating, and coordinating care regarding the above mentioned plan. - Physical Exam Constitutional: no apparent distress Eyes: PERRL Ears, Nose, Mouth, Throat: moist mucous membranes Cardiovascular: regular rate and rhythym Respiratory: no respiratory distress Gastrointestinal: normoactive bowel sounds, tenderness (mild lower quadrant pain ), distension, No guarding, No rebound Genitourinary: no bladder fullness Skin: warm Musculoskeletal: full muscle strength Neurologic: AAOx3, CN II-XII Intact Psychiatric: interacting appropriately ICD10 Worksheet Patient Problems: Problems Problem Status Onset Sigmoid diverticulitis Acute Bipolar 1 disorder with moderate lexie Acute Bipolar disorder (manic depression) Acute Chest pain Acute Constipation Acute History of coronary artery disease Acute Troponin level elevated Acute
[2018-05-16] MEDS: POTASSIUM CL 20 MEQ/15 ML UDCUP PO ONE ×2 (11:01→14:21)
[2018-05-16] MEDS: HYDROmorphONE/DILAUDID 1 MG/ML INJ IVP PRN (12:37)
[2018-05-16] MEDS ORDERED: POTASSIUM CL 20 MEQ TAB PO ONE (13:00)
[2018-05-16] MEDS: metroNIDAZOLE 500 MG TAB PO SCH ×2 (13:26→22:35)
[2018-05-16] MEDS: metFORMIN HCL 500 MG TAB PO SCH (16:26)
[2018-05-16] MEDS: CETIRIZINE 10 MG TAB PO SCH (16:26)
[2018-05-16] MEDS: ATORVASTATIN CALCIUM 40 MG TAB PO SCH (16:26)
[2018-05-16] MEDS: HYDROCORTISONE ACETATE 25 MG SUPP PR PRN ×2 (16:52→23:43)
[2018-05-16] MEDS: SODIUM CL NASAL 45 ML BTL EACHNARE PRN ×2 (18:29→23:50)
[2018-05-16] MEDS: ONDANSETRON 4 MG/2 ML VIAL IVP PRN (21:32)
[2018-05-16] MEDS: GABAPENTIN 300 MG CAP PO SCH (22:34)
[2018-05-17] MEDS: BACLOFEN 20 MG TAB PO SCH (00:08)
[2018-05-17] MEDS: metroNIDAZOLE 500 MG TAB PO SCH ×3 (05:07→21:53)
[2018-05-17] MEDS: INSULIN LISPRO 100 UNIT/ML SC SCH ×3 (08:10→18:57)
[2018-05-17] MEDS: BACLOFEN 10 MG TAB PO SCH ×2 (08:54→21:53)
[2018-05-17] MEDS: ENOXAPARIN 40 MG/0.4 ML SYR SC SCH (08:54)
[2018-05-17] MEDS: METOPROLOL SUCCINATE XR 50 MG TAB PO SCH (08:54)
[2018-05-17] MEDS: PANTOPRAZOLE SODIUM 40 MG TAB PO SCH ×2 (08:55→21:53)
[2018-05-17] MEDS: ARIPiprazole 5 MG TAB PO SCH (08:55)
[2018-05-17] MEDS: IPRATROPIUM 0.03% NASAL SPRAY EACHNARE SCH ×2 (08:59→18:56)
[2018-05-17] MEDS: ALBUTEROL SULFATE IH SCH ×2 (08:59→21:58)
[2018-05-17] MEDS: Tiotropium Bromide [Spiriva Respimat] 2 PUFFS IH SCH ×2 (09:00→22:33)
[2018-05-17] MEDS ORDERED: Herbals/Supplements -Info Only PO SCH (09:00)
[2018-05-17] MEDS: Mometasone/Formoterol [Dulera 100 Mcg/5 Mcg Inhaler] 2 PUFFS IH SCH ×2 (09:02→22:14)
[2018-05-17] MEDS: CETIRIZINE 10 MG TAB PO SCH (15:16)
[2018-05-17] MEDS: metFORMIN HCL 500 MG TAB PO SCH (15:16)
[2018-05-17] MEDS: ATORVASTATIN CALCIUM 40 MG TAB PO SCH (15:16)
--- NOTE | 2018-05-17 15:30 | HOSPPROG ---
Hospitalist Progress Note Assessment/Plan: #Acute diverticulitis: CTX, Flagyl (Day 3) #Severe constipation: having BMs #Hemorrhoids: steroid suppository #Hypokalemia: replete #Chronic pain with opioid dependency: contributing to to constipation #CAD: statin, BB #Bipolar d/o #Diet: as tolerated #DVT ppx: Lovenox Inpatient admission for abx, antiemetics. Still on CLD, d/c tomorrow if tolerating advancing diet Subjective: Patient reports crampy b/l lower quandrant abdominal pain Objective: Vital Signs Temp Pulse Resp BP Pulse Ox 36.8 C 64 16 124/74 H 95 05/17/18 07:32 05/17/18 08:54 05/17/18 07:32 05/17/18 08:54 05/17/18 07:32 Laboratory Results 05/17/18 00:30 05/17/18 04:25 05/16/18 05/17/18 05/18/18 05:59 05:59 05:59 Intake Total 750 1639 Output Total 1500 Balance 750 139 - Physical Exam Constitutional: no apparent distress Eyes: PERRL Ears, Nose, Mouth, Throat: moist mucous membranes Cardiovascular: regular rate and rhythym Respiratory: no respiratory distress Gastrointestinal: tenderness (TTP in b/l lower quadrants ), distension, No guarding, No rebound Skin: warm Musculoskeletal: full muscle strength Neurologic: AAOx3 Psychiatric: interacting appropriately ICD10 Worksheet Patient Problems: Problems Problem Status Onset Sigmoid diverticulitis Acute Bipolar 1 disorder with moderate lexie Acute Bipolar disorder (manic depression) Acute Chest pain Acute Constipation Acute History of coronary artery disease Acute Troponin level elevated Acute
[2018-05-17] MEDS ORDERED: OXYCODONE/APAP 5/325 TAB PO PRN (16:50)
[2018-05-17] MEDS: ONDANSETRON 4 MG/2 ML VIAL IVP PRN (20:38)
[2018-05-17] MEDS: GABAPENTIN 300 MG CAP PO SCH (21:53)
[2018-05-17] MEDS ORDERED: LEVOCETIRIZINE DIHYDROCHLORIDE 5 MG PO SCH (22:00)
[2018-05-17] MEDS: diphenhydrAMINE 25 MG CAP PO PRN (22:14)
[2018-05-17] MEDS: HYDROCORTISONE ACETATE 25 MG SUPP PR PRN (22:15)
[2018-05-18] MEDS: diphenhydrAMINE 25 MG CAP PO PRN ×2 (00:57→11:08)
[2018-05-18] MEDS: BACLOFEN 20 MG TAB PO SCH (01:49)
[2018-05-18] MEDS: metroNIDAZOLE 500 MG TAB PO SCH (05:54)
[2018-05-18 08:15] VITALS: BP 139/65
[2018-05-18] MEDS: ARIPiprazole 5 MG TAB PO SCH (09:13)
[2018-05-18] MEDS: PANTOPRAZOLE SODIUM 40 MG TAB PO SCH (09:13)
[2018-05-18] MEDS: BACLOFEN 10 MG TAB PO SCH (09:14)
[2018-05-18] MEDS: METOPROLOL SUCCINATE XR 50 MG TAB PO SCH (09:14)
[2018-05-18] MEDS: INSULIN LISPRO 100 UNIT/ML SC SCH ×2 (09:15→12:00)
[2018-05-18] MEDS: ENOXAPARIN 40 MG/0.4 ML SYR SC SCH ×2 (09:15→09:35)
[2018-05-18] MEDS: IPRATROPIUM 0.03% NASAL SPRAY EACHNARE SCH (09:16)
[2018-05-18] MEDS: Tiotropium Bromide [Spiriva Respimat] 2 PUFFS IH SCH (09:17)
[2018-05-18] MEDS: ALBUTEROL SULFATE IH SCH (09:18)
[2018-05-18] MEDS: Mometasone/Formoterol [Dulera 100 Mcg/5 Mcg Inhaler] 2 PUFFS IH SCH (09:19)
[2018-05-18] MEDS ORDERED: IBUPROFEN 200 MG TAB PO ONE (10:07)
[2018-05-18] MEDS: HYDROCORTISONE ACETATE 25 MG SUPP PR PRN (11:08)
--- NOTE | 2018-05-18 12:42 | ASDISCHSUM ---
Discharge Information Plan Status:Home with No Needs Medically Cleared to Leave:05/18/2018 Discharge Date:05/18/2018 CM D/C Disposition:Home, Routine, Self-Care ADT D/C Disposition: Projected Discharge Date:05/18/2018 Transportation at D/C:Family Discharge Delay Reason: Follow-Up Date:05/18/2018 Discharge Slot: Final Diagnosis: Placement Information Patient Contact Information Contact Name:LULÚ Relationship:Jose Address:[address] City:[place] Alternate Phone: [facility] Code:[place] [address] Email: Financial Information Financial Class:Medicare Primary Plan Desc:MEDICARE INPATIENT Primary Plan Number:[id number] Secondary Plan Desc:DANNIELLE/DEL SUPPLEMENT Secondary Plan Number:[id number] Assessment Information LACE LACE Length of stay for Answers: 3 days current admission Acuity / Level of Answers: Yes Care: Did the patient have an inpatient admission? Comorbidities - select Answers: Coronary Artery Disease all that apply Diabetes (uncontrolled or controlled) Other Notes: HTN, diverticulitis, as thm a # of Emergency department Answers: 1-2 visits in the last 6 months Social determinants Answers: Mental health diagnosis (anxiety, depression, pers onality disorders, etc.) Score: 14 Date Signed: 05/18/2018 12:39 PM Electronically Signed By:FLORENCE Prince [facility] Progress Note CM Note CM Note Notes: Pt has been admitted with constipation, diverticulitis, hypokalemia. She was in the ED 05/12 with similar sx. She has a hx of opioid dependence for chronic pain. She is currently being treated with IVF and IV ABX. CM will follow for any d/c needs. D/C plan: TBD Date Signed: 05/15/2018 03:37 PM Electronically Signed By:FLORENCE Prince Case Management Discharge Plan Note Case Management Discharge Discharge Order Complete? Answers: Yes Patient to Obtain Answers: Independently Medications Transportation Arranged Answers: Family/Friends Discharge Comments Notes: Pt is medically cleared for d/c today. She has family to assist with needs. Pt is discharging home with no CM needs. Date Signed: 05/18/2018 12:41 PM Electronically Signed By:FLORENCE Prince Intervention Information Intervention Type:*Incorrect Registration Date of Service:05/15/2018 03:22 PM Patient Type:Observation Staff Member:Shelley Darnell Hours: Discipline: Severity: Comment: Intervention Type:*IM-Signed Date of Service:05/18/2018 12:32 PM Patient Type:Inpatient Staff Member:Karina Garcia Hours: Discipline: Severity: Comment:
--- NOTE | 2018-05-18 14:12 | PDDCSUM ---
Discharge Summary Discharge Summary: Date of Admission: 05/15/2018 Date of Discharge: 05/18/2018 Consults: N/A Procedures; CT Abdomen Followup: PCP Hospital Course Problem List: #Acute diverticulitis: Levauin/Flagyl (Day 4), discharged to complete total 7 day course #Severe constipation: having BMs #Hemorrhoids: steroid suppository #Hypokalemia: repleted #Chronic pain with opioid dependency: contributing to to constipation #CAD: statin, BB #Bipolar d/o Time spent on discharge was >35 minutes with >50% of time spent on patient education and counseling.
[2018-05-18] MEDS ORDERED: BACLOFEN 20 MG TAB PO SCH (21:00)
== END 2018-05-18 13:53 | disposition home or self-care (01) | DRG 392 ==
LOC: F1N 13:26 → OBSVTOIN 13:41
PROVIDERS: ADMIT Internal Medicine; ATTEND Internal Medicine
DX: K57.30 Diverticulosis of large intestine without perforation or abscess without bleeding (principal); K82.1 Hydrops of gallbladder; K59.00 Constipation, unspecified; G89.29 Other chronic pain; F11.20 Opioid dependence, uncomplicated; K64.9 Unspecified hemorrhoids; I10 Essential (primary) hypertension; E87.6 Hypokalemia; I25.10 Atherosclerotic heart disease of native coronary artery without angina pectoris; F31.9 Bipolar disorder, unspecified; D64.9 Anemia, unspecified; J45.909 Unspecified asthma, uncomplicated; E78.5 Hyperlipidemia, unspecified
CPT/HCPCS: 96374; A9585; J1170; J1650; J1956; J2270; J2405; J3480; Q9967